=== PATIENT | female | born 1940 | race African-American/Black ===

== ENCOUNTER 2017-01-15 14:32 | Outpatient (CLI) | payer MEDICARE, MEDICAID ==
--- NOTE | 2017-01-15 15:36 | SJPRAD ---
3 VIEWS CERVICAL SPINE: Date: 01/15/17 INDICATION: Cervicalgia. FINDINGS: There is mild disc degenerative disease seen at C3-4 through C6-7. Spinal alignment is preserved. La teral masses are symmetric. Lung apices are clear. IMPRESSION: Mild spondylosis of cervical spine. POS: [facility]
== END 2017-01-15 14:33 | disposition home or self-care (01) ==
LOC: MWLC RAD 14:32
PROVIDERS: ATTEND Family Medicine
DX: M54.2 Cervicalgia (principal); M47.892 Other spondylosis, cervical region

== ENCOUNTER 2017-07-03 14:20 | Outpatient (CLI) | payer MEDICARE, MEDICAID | END 2017-07-03 14:21 | disposition home or self-care (01) | LOC: BICMAMMO 14:20 | PROVIDERS: ATTEND Family Medicine | DX: Z12.31 Encounter for screening mammogram for malignant neoplasm of breast (principal); Z80.3 Family history of malignant neoplasm of breast | CPT/HCPCS: 77063; 77067 ==

== ENCOUNTER 2017-10-16 09:12 | Emergency (ER) | payer MEDICARE, MEDICAID ==
[2017-10-16 09:50] LABS: #Eosinphils 0.1 thou/uL (0.0-0.7); #Lymphocytes 2.1 thou/uL (1.20-3.40); #Monocytes 0.4 thou/uL (0.11-0.59); #Neutrophils 4.8 thou/uL (1.40-6.50); %Basophils 0.6 % (0.0-1.0); %Eosinophils 0.8 % (0.0-10.0); %Lymphocytes 28.6 % (21.0-51.0); %Neutrophils 64.9 % (42.0-75.0); Hemoglobin 12.9 g/dL (12.0-16.0); Mean Corpuscular HGB CONC 34.5 g/dL (32.0-36.0); Mean Corpuscular Hemoglobin 29.7 pg (27.0-31.0); Mean Platelet Volume 7.2 fL (7.4-10.4); Platelet Count 300 thou/uL (130-400); RBC Distribution Width 12.4 % (11.5-14.5); Red Blood Cell (RBC) Count 4.36 mill/uL (4.20-5.40); White Blood Cell (WBC) Count 7.5 thou/uL (4.8-10.8)
[2017-10-16] MEDS ORDERED: Mag-Al 1200 mg/1200 mg/30 ML UDCUP ONE (10:07)
[2017-10-16] MEDS ORDERED: Lidocaine Viscous Sol 2% 15 ml UD Cup ONE (10:07)
--- NOTE | 2017-10-16 10:25 | ULT ---
ULTRASOUND GALLBLADDER RIGHT UPPER QUADRANT: Date: 10/16/17 HISTORY: Abdominal pain. COMPARISON: CT examination June 2016. FINDINGS: Visualized portions of the pancreas unremarkable. Portal vein is patent with antegrade flow. Common b ile duct measures 5.0 mm, normal. Gallbladder wall thickness is normal. No pericholecystic fluid. Intrapolar right renal cyst is present. Right kidney measures 10.1 x 3.8 x 5.5 cm. IMPRESSION: 1. No acute abnormality. 2. Right renal cyst. POS: [facility]
[2017-10-16 10:33] LABS: ALT (SGPT) 10 U/L (8-55); AST (SGOT) 21 U/L (5-34); Albumin 4.3 g/dL (3.4-4.8); Alkaline Phosphatase 73 U/L (40-150); Anion Gap 14 mmol/L (10-20); BUN (Urea Nitrogen) 19 mg/dL (9.8-20.1); Bilirubin, Total 0.5 mg/dL (0.2-1.2); Calc. Creatinine Clearance 0 mL/min (70-130); Calcium 9.6 mg/dL (7.8-10.44); Carbon Dioxide 26 mmol/L (23-31); Chloride 101 mmol/L (98-107); Estimated GFR-MDRD 62; Globulin 3.5 g/dL (2.4-3.5); Glucose 174 mg/dL (83-110); Lipase 43 U/L (8-78); Potassium 3.8 mmol/L (3.5-5.1); Protein, Total 7.8 g/dL (6.0-8.3); Sodium 137 mmol/L (136-145)
[2017-10-16 10:39] LABS: CKMB 1.1 ng/mL (0-6.6); Troponin I Less than 0.010 ng/mL (< 0.028)
[2017-10-16 10:49] LABS: Bilirubin Negative (Negative); Blood, Urine Negative (Negative); Clarity CLOUDY (Clear); Glucose, Urine (Dipstick) Negative (Negative); Leukocyte Moderate (Negative); Nitrite Negative (Negative); Protein, Urine (Dipstick) 100 mg/dL (Neg-Trace); Specific Gravity, Urine 1.021 (1.002-1.036)
[2017-10-16 10:53] LABS: Bacteria/HPF Rare-Few HPF (None Seen); Hyaline Casts/LPF 7-10 HYALINE CAST LPF (0-3 Hyaline); Pathc Cast-AUWi Flag 2.03 (0-2.49); RBC/HPF 0-3 HPF (0-3); WBC/HPF 21-50 HPF (0-3)
--- NOTE | 2017-10-19 11:48 | EKG ---
Test Reason : ABD PAIN Blood Pressure : / mmHG Vent. Rate : 061 BPM Atrial Rate : 061 BPM P-R Int : 134 ms QRS Dur : 082 ms QT Int : 398 ms P-R-T Axes : 039 022 011 degrees QTc Int : 400 ms Normal sinus rhythm with sinus arrhythmia Normal ECG Confirmed by MAGDA SHERIFF DO ([id number]), editorial intern DAVIDSON NEWTON ([id number]) on 10/19/2017 11:48:27 AM Referred By: Confirmed By:MAGDA SHERIFF DO
== END 2017-10-16 13:06 | disposition home or self-care (01) ==
LOC: ERS 09:12
DX: N39.0 Urinary tract infection, site not specified (principal); E11.9 Type 2 diabetes mellitus without complications; E78.5 Hyperlipidemia, unspecified; I10 Essential (primary) hypertension; E66.9 Obesity, unspecified; Z86.73 Personal history of transient ischemic attack (TIA), and cerebral infarction without residual deficits; Z79.899 Other long term (current) drug therapy
CPT/HCPCS: 36415; 76705; 80053; 81003; 81015; 82553; 83690; 84484; 85025; 93005

== ENCOUNTER 2018-06-02 08:11 | Outpatient (CLI) | payer MEDICARE, MEDICAID ==
--- NOTE | 2018-06-02 10:21 | ULT ---
ABDOMINAL ULTRASOUND: HISTORY: Abdominal pain. TECHNIQUE: Real-time imaging of the upper abdomen was performed. FINDINGS: This shows a normal appearing gallbladder. The common duct is in the 4 mm range. The technologist r eports a negative ultrasound Stovall sign. The liver is 15 cm in length and shows no focal lesion. T he spleen measures 7 cm. The pancreas is fairly well imaged and unremarkable. The abdominal aorta and IVC regions also appear unremarkable. The right and left kidneys are normal in size and not obstructed. Incidental note is made of 2.4 x 2 .8 cm right renal cyst. IMPRESSION: Right renal cyst; otherwise unremarkable abdomen ultrasound. POS: [facility]
== END 2018-06-02 08:12 | disposition home or self-care (01) ==
LOC: ULT 08:11
PROVIDERS: ATTEND Internal Medicine Gastroenterology
DX: R10.9 Unspecified abdominal pain (principal); N28.1 Cyst of kidney, acquired
CPT/HCPCS: 76700

== ENCOUNTER 2018-06-11 11:44 | Day surgery (SDC) | payer MEDICARE, MEDICAID ==
--- NOTE | 2018-06-11 07:30 | HP ---
HISTORY OF PRESENT ILLNESS: This is a 78-year-old female, comes for EGD because of abdominal pain, dyspepsia, heartburn, etc. Ms. Mcghee is a very pleasant 78-year -old female with chronic GI symptoms. She complained of indigestion, heartburn, and nausea. She antacids several times a day before relief. The symptoms were worse in the nighttime. She feels that food sticks in her esophagus. She feels she has no dysphagia. When she eats, the food goes down and after a while the food does not go any further. She has had nausea off and on. She has no vomiting. No history of constipation. ALLERGIES: PENICILLIN. SOCIAL HISTORY: The patient does not smoke or drink alcohol. MEDICAL ILLNESSES: 1. Hypertension. 2. Diabetes. 3. Hyperlipidemia. 4. Chronic pain, both lower extremities. 5. Right eye blindness. 6. Osteoarthritis. 7. Anxiety. 8. Back pain. PHYSICAL EXAMINATION: GENERAL: She appears comfortable. VITAL SIGNS: Pulse is 70, blood pressure 110/76. HEENT: Conjunctivae clear. CARDIOVASCULAR SYSTEM: First and second heart sounds heard. LUNGS: Clear to auscultation. ABDOMEN: Soft. Abdomen is mildly tender over the epigastric area. There is no rebound or guarding. ADMITTING DIAGNOSIS: A 78-year-old female with recurrent dyspepsia, questionable dysphagia, and indigestion. PLAN: EGD. [facility] ID: [id number] [facility]
[~2018-06-11 11:44] MED LIST: PROPOFOL 200 MG/20 ML VIAL ONE
[2018-06-11] MEDS ORDERED: Ondansetron PF 4 MG/2 ML Vial ONE (14:04)
--- NOTE | 2018-06-11 18:00 | OP ---
DATE OF PROCEDURE: 06/11/2018 PREOPERATIVE DIAGNOSES: Chronic dyspepsia and abdominal discomfort. POSTOPERATIVE DIAGNOSES: 1. Hiatal hernia. 2. Normal esophageal mucosa. 3. sessile polyp, gastric body, biopsied. 4. Another two small polyps over the gastric body, appeared to be hyperplastic, not biopsied. 5. Normal duodenum. OPERATIVE PROCEDURE: Esophagogastroduodenoscopy with biopsy. PROCEDURE IN DETAIL: The patient was placed on the left lateral position and was given sedation by Anesthesia Department. A Pentax video gastroscope under direct vision passed down the oropharynx, past the GE junction into the stomach and subsequently into the descending duodenum. The esophageal mucosa appeared normal. The patient had no esophageal stricture. She does have small hiatus hernia. Retroflexion failed to show any pathology in fundus or cardia. The gastric body showed a sessile polyp. This was biopsied. The incisura angularis, gastric antrum, no pathology seen. The duodenal bulb, descending duodenum, no pathology seen. The stomach decompressed and the scope removed. DISCHARGE PLANNING: This is a 78-year-old female, came to the EGD because of chronic dyspepsia, abdominal discomfort, and questionable dysphagia. The EGD showed no esophageal stricture. Does show hiatus hernia and gastric polyps. DISCHARGE RECOMMENDATIONS: 1. The patient was advised to call me if she develops abdominal pain, hematochezia, hematemesis, or melena. 2. In the absence of any of the above symptoms, she will come back to me in 2 weeks. Job ID: [id number] [facility]
== END 2018-06-11 15:35 | disposition home or self-care (01) ==
LOC: SDC 11:44 → EEVIPCON 11:44 → SDC 15:35
PROVIDERS: ATTEND Internal Medicine Gastroenterology
PROC: 0DB68ZX Excision of Stomach, Via Natural or Artificial Opening Endoscopic, Diagnostic (ICD-10-PCS; principal; 2018-06-11)
DX: K29.50 Unspecified chronic gastritis without bleeding (principal); B96.81 Helicobacter pylori [H. pylori] as the cause of diseases classified elsewhere; K31.7 Polyp of stomach and duodenum; K44.9 Diaphragmatic hernia without obstruction or gangrene; I10 Essential (primary) hypertension; E11.9 Type 2 diabetes mellitus without complications; E78.5 Hyperlipidemia, unspecified; M19.90 Unspecified osteoarthritis, unspecified site; F41.9 Anxiety disorder, unspecified; G89.29 Other chronic pain; M79.605 Pain in left leg; M79.604 Pain in right leg; Z88.0 Allergy status to penicillin; Z88.1 Allergy status to other antibiotic agents; Z79.84 Long term (current) use of oral hypoglycemic drugs; Z79.899 Other long term (current) drug therapy
CPT/HCPCS: 88305; 88312; J2405; J2704

== ENCOUNTER 2018-07-04 09:33 | Outpatient (CLI) | payer MEDICARE, MEDICAID ==
--- NOTE | 2018-07-04 11:07 | MMO ---
Bilateral MAMMO Bilat Screen DDI+TRAMAINE. CLINICAL HISTORY: Patient is 78 years old and is seen for screening. The patient has the following family history of breast cancer: niece. The patient has no personal history of cancer. VIEWS: The views performed were: bilateral craniocaudal with tomosynthesis and bilateral mediolateral oblique with tomosynthesis. FILMS COMPARED: The present examination has been compared to prior imaging studies performed at [facility] on 05/09/2009, 06/06/2010, 06/08/2011, 05/27/2013, 06/11/2014, 06/14/2015, 06/15/2016 and 07/03/2017. MAMMOGRAM FINDINGS: There are scattered fibroglandular densities. There are no suspicious masses, suspicious calcifications, or new areas of architectural distortion. IMPRESSION: THERE IS NO MAMMOGRAPHIC EVIDENCE OF MALIGNANCY. A ROUTINE FOLLOW-UP MAMMOGRAM IN 1 YEAR IS RECOMMENDED. THE RESULTS OF THIS EXAM WERE SENT TO THE PATIENT. ACR BI-RADS Category 1 - Negative MAMMOGRAPHY NOTE: 1. A negative mammogram report should not delay a biopsy if a dominant of clinically suspicious mass is present. 2. Approximately 10% to 15% of breast cancers are not detected by mammography. 3. Adenosis and dense breasts may obscure an underlying neoplasm.
== END 2018-07-04 09:34 | disposition home or self-care (01) ==
LOC: BICMAMMO 09:33
PROVIDERS: ATTEND Family Medicine
DX: Z12.31 Encounter for screening mammogram for malignant neoplasm of breast (principal); Z80.3 Family history of malignant neoplasm of breast
CPT/HCPCS: 77063; 77067

== ENCOUNTER 2019-01-12 15:20 | Emergency (ER) | payer MEDICARE, MEDICAID ==
[2019-01-12 17:30] LABS: Bacteria/HPF None Seen HPF (None Seen); Bilirubin Negative (Negative); Blood, Urine Negative (Negative); Clarity Clear (Clear); Glucose, Urine (Dipstick) Normal (Negative); Leukocyte Negative Leu/uL (Negative); Nitrite Negative (Negative); Protein, Urine (Dipstick) 50 mg/dL (Neg-Trace); RBC/HPF 0-3 HPF (0-3); Squamous Epithelial 0-3 HPF (0-3); Urobilinogen Normal mg/dL (Less than 2); WBC/HPF 0-3 HPF (0-3)
[2019-01-12] MEDS ORDERED: Ketorolac Tromethamine 60 MG/2 ML VIAL ONE (19:04)
[2019-01-12] MEDS ORDERED: Dexamethasone 4 mg/ml Vial ONE (19:04)
[2019-01-12] MEDS ORDERED: Dexamethasone 4 MG TAB PO SCH (19:15)
--- NOTE | 2019-01-12 19:53 | CT ---
CT LUMBAR SPINE: INDICATIONS: Low back pain. FINDINGS: The lumbar vertebrae maintain normal height and alignment. The disk spaces are normally maintained. T here are degenerative disk changes seen in the lower thoracic spine. Degenerative spurring is seen fr om the lumbar vertebrae. No evidence of spondylolisthesis. At L1-L2 no significant disk bulge. No central canal or foraminal stenosis. At L2-L3 no significant disk bulge. No central canal or foraminal stenosis. At L3-L4 no significant disk bulge. Mild facet hypertrophy. No central canal or foraminal stenosis. At L4-L5 mild diffuse disk bulge flattens the thecal sac. Mild facet and ligamentous hypertrophy. Rayna y mild central canal stenosis. Foramina are patent. At L5-S1 broad-based disk bulge flattens the thecal sac. Facet and ligamentous hypertrophy. Mild cent ral canal stenosis. Mild foraminal encroachment bilaterally due to disk bulge and hypertrophic change . The diffuse disk bulge may displace both the traversing S1 nerve roots. IMPRESSION: Broad-based disk bulge with mild to moderate central canal stenosis at L5-S1 as described. POS: [facility]
--- NOTE | 2019-01-12 20:03 | CT ---
CT THORACIC SPINE: HISTORY: Mid and low back pain with pain radiating down both legs for three days. Pain with urination. Bodyach es. COMPARISON: None. FINDINGS: The vertebral body heights are within normal limits. No fracture or subluxation is seen involving the thoracic spine. There is no high grade central canal stenosis or neural foraminal narrowing at any l evel of the thoracic spine. Limited visualized lower cervical spine demonstrates degenerative changes with prominent left-sided uncinate process hypertrophy involving the lower cervical spine and encroa chment on the left sided neural foramen at these levels. There is dependent atelectasis within the visualized lung zones. The paravertebral soft tissues have a normal appearance. There is partial visualization of a small pericardial effusion and the heart does appear mildly enlar ged as well. The pericardial effusion was also visualized on CT abdomen on 07/10/2016. Vascular calcifications are seen in the aortic arch as well as involving the visualized proximal abdo johnny aorta. A subcentimeter, aev-[id number]-[id number]-characterize, hypodense lesion is incompletely imaged in the mid portio n of the left kidney. IMPRESSION: 1. Mild multilevel degenerative changes throughout the thoracic spine, but no fracture or subluxation is seen. 2. Small pericardial effusion. POS: [facility]
[2019-01-12] MEDS ORDERED: Dexamethasone 10 MG/ML VIAL ONE (20:44)
== END 2019-01-12 20:59 | disposition home or self-care (01) ==
LOC: ERS 15:20
DX: M47.9 Spondylosis, unspecified (principal); I49.9 Cardiac arrhythmia, unspecified; E11.9 Type 2 diabetes mellitus without complications; E78.5 Hyperlipidemia, unspecified; I10 Essential (primary) hypertension; E66.9 Obesity, unspecified; Z79.899 Other long term (current) drug therapy; Z86.73 Personal history of transient ischemic attack (TIA), and cerebral infarction without residual deficits; Z79.84 Long term (current) use of oral hypoglycemic drugs
CPT/HCPCS: 72128; 72131; 81003; 81015; 96372; J1100; J1885

== ENCOUNTER 2019-07-31 10:10 | Outpatient (CLI) | payer MEDICARE, OTHER ==
--- NOTE | 2019-07-31 10:48 | MMO ---
Bilateral MAMMO Bilat Screen DDI+TRAMAINE. CLINICAL HISTORY: Patient is 79 years old and is seen for screening. The patient has the following family history of breast cancer: niece. The patient has no personal history of cancer. VIEWS: The views performed were: bilateral craniocaudal with tomosynthesis and bilateral mediolateral oblique with tomosynthesis. FILMS COMPARED: The present examination has been compared to prior imaging studies performed at [facility] on 06/14/2015, 06/15/2016, 07/03/2017 and 07/04/2018. This study has been interpreted with the assistance of computer-aided detection. MAMMOGRAM FINDINGS: There are scattered fibroglandular densities. There are no suspicious masses, suspicious calcifications, or new areas of architectural distortion. IMPRESSION: THERE IS NO MAMMOGRAPHIC EVIDENCE OF MALIGNANCY. A ROUTINE FOLLOW-UP MAMMOGRAM IN 1 YEAR IS RECOMMENDED. THE RESULTS OF THIS EXAM WERE SENT TO THE PATIENT. ACR BI-RADS Category 1 - Negative MAMMOGRAPHY NOTE: 1. A negative mammogram report should not delay a biopsy if a dominant of clinically suspicious mass is present. 2. Approximately 10% to 15% of breast cancers are not detected by mammography. 3. Adenosis and dense breasts may obscure an underlying neoplasm. Reported by: IRMA WESTBROOK MD Electonically Signed: [id number]
== END 2019-07-31 10:11 | disposition home or self-care (01) ==
LOC: BICMAMMO 10:10
PROVIDERS: ATTEND Family Medicine
DX: Z12.31 Encounter for screening mammogram for malignant neoplasm of breast (principal); Z80.3 Family history of malignant neoplasm of breast
CPT/HCPCS: 77063; 77067

== ENCOUNTER 2020-02-09 13:23 | Inpatient (IN) | payer MEDICARE, MEDICAID ==
[~2020-02-09 13:23] MED LIST changes: +Iopamidol-370 76% 500 ML 1 ML ONE; -PROPOFOL 200 MG/20 ML VIAL ONE
--- NOTE | 2020-02-09 13:43 | CT ---
CT Brain WO Con History: Level 1 stroke. Left-sided weakness. Comparison: MRI brain 2007 Findings: Moderate microvascular ischemic changes in the parisi radiata and right basal ganglia. Old left basal ganglia infarcts. No acute hemorrhage. No midline shift or mass effect. No large volume territorial infarction. Calvarium is intact. Paranasal sinuses and mastoids are clear. Impression: 1. No acute hemorrhage. 2. Moderate chronic microvascular ischemic changes. Code: DARLINE Funez at 1:38 PM
[2020-02-09 14:01] LABS: #Eosinphils 0.1 thou/uL (0.0-0.7); #Lymphocytes 2.4 thou/uL (1.20-3.40); #Monocytes 0.5 thou/uL (0.11-0.59); #Neutrophils 5.3 thou/uL (1.40-6.50); %Basophils 0.5 % (0.0-1.0); %Eosinophils 1.2 % (0.0-10.0); %Lymphocytes 28.6 % (21.0-51.0); %Monocytes 6.5 % (0.0-10.0); %Neutrophils 63.2 % (42.0-75.0); Mean Corpuscular HGB CONC 34.3 g/dL (32.0-36.0); Mean Corpuscular Hemoglobin 30.1 pg (27.0-31.0); Mean Corpuscular Volume 87.7 fL (78.0-98.0); Mean Platelet Volume 8.2 fL (7.4-10.4); Platelet Count 274 thou/uL (130-400); RBC Distribution Width 12.1 % (11.5-14.5); Red Blood Cell (RBC) Count 4.33 mill/uL (4.20-5.40); White Blood Cell (WBC) Count 8.3 thou/uL (4.8-10.8)
[2020-02-09 14:06] LABS: PTT 24.3 sec (22.9-36.1); Prothrombin Time 12.1 sec (12.0-14.7)
[2020-02-09 14:07] LABS: INR-International Normal Ratio 0.9
[2020-02-09 14:21] LABS: ALT (SGPT) 9 U/L (8-55); AST (SGOT) 16 U/L (5-34); Alkaline Phosphatase 62 U/L (40-110); Anion Gap 10 mmol/L (10-20); BUN (Urea Nitrogen) 12 mg/dL (9.8-20.1); Bilirubin, Total 0.4 mg/dL (0.2-1.2); CK (CPK) 226 U/L (29-168); Calc. Creatinine Clearance 0 mL/min (70-130); Calcium 9.3 mg/dL (7.8-10.44); Carbon Dioxide 29 mmol/L (23-31); Chloride 104 mmol/L (98-107); Estimated GFR-MDRD 76; Globulin 3.2 g/dL (2.4-3.5); Glucose 88 mg/dL (83-110); Potassium 4.1 mmol/L (3.5-5.1); Protein, Total 7.2 g/dL (6.0-8.3); Sodium 139 mmol/L (136-145)
[2020-02-09] MEDS ORDERED: niCARdipine 20MG In NaCl 0 MG/0 ML BAG ONE (14:24)
--- NOTE | 2020-02-09 14:52 | CT ---
CT ANGIOGRAM OF HEAD CT ANGIOGRAM OF NECK: Date: 02/09/2020 HISTORY: Left-sided weakness, Level I stroke. TECHNIQUE: CT angiogram of head and neck are performed in the axial plane. 3-D reformatted images are submitted for interpretation. FINDINGS: POSTCONTRAST HEAD CT: Chronic small vessel ischemic changes of the white matter. Remote lacunar infarct involving the right lentiform nucleus. Remote lacunar infarct in the right parisi radiata. Cortical rodriguez-white matter di fferentiation is preserved. There are no enhancing masses in the brain parenchyma. Calvarium is intact. Adequate aeration of the right mastoid air cells. There is left maxillary sinus and left mastoid air cell disease. There is asymmetric increased soft tissue density in the left nasopharynx at the fossa of Rosenmuller. Underlying pathology cannot be excluded. Direct visualization is recommended. No obvious masses in the anterior oral cavity. Limited evaluation due to dental amalgam artifact. Mid line fatty raphae of the tongue appears to be grossly preserved. Epiglottis has a normal caliber. Pre epiglottic fat is preserved. Supraglottic, glottic, and subglottic larynx have a normal appearance. S ymmetric attenuation of the parotid and submandibular glands. Thyroid gland does not demonstrate any abnormality. No evidence of lymphadenopathy by size criteria. Varying degrees of central canal stenosis and foraminal narrowing on the basis of degenerative change . Technique limits evaluation. Upper mediastinum and lung apices do not demonstrate any acute abnormality. CT ANGIOGRAM: There is appropriate enhancement and luminal diameter of aortic arch. Note, there is a common origin of the innominate artery, and right and left common carotid artery. Right Carotid: Appropriate enhancement and luminal diameter. Mild atherosclerosis in carotid bifurca tion and proximal internal carotid artery. No significant stenosis based upon NASCET criteria. Left Carotid: Appropriate enhancement and luminal diameter of the carotid artery. There is atheroscl erosis with short segment moderate 64% stenosis involving the left carotid bifurcation. The mid and d istal left internal carotid artery have appropriate enhancement and luminal diameter. Cervical vertebral arteries are patent throughout their course in the neck. Dominant right vertebral artery. Subclavian arteries are patent. CT ANGIOGRAM HEAD: Atherosclerosis involving both cavernous and paraclinoid segments. Anterior circulation: Appropriate enhancement and luminal diameter of the A1 segments, A2 segments, M1 segments, and proximal MCA branches. Intracranial vertebral arteries are patent. Left and right PICA artery origins are difficult to asses s. Both vertebral arteries supply a normal caliber basilar artery. Posterior circulation: Right INVERTED BLOCK OPERATOR has a origin. Left P1 segment is patent. No evidence of signi ficant stenosis in the posterior circulation. IMPRESSION: 1. Moderate stenosis involving the left carotid bifurcation. 2. No significant stenosis to level of [place] of [place]. 3. Asymmetric opacification of left mastoid air cells with asymmetric fullness of the left nasophary nx at the level of fossa of Rosenmuller. Nasopharyngeal carcinoma cannot be excluded. Direct visualiz ation is recommended. Results of study discussed with Dr. Funez on 02/09/2020 at 1420 hours. CODE CR.
[2020-02-09] MEDS ORDERED: Aspirin Chewable 81 MG TAB ONE (14:54)
[2020-02-09] MEDS ORDERED: hydrALAZINE 20 MG/ML VIAL SLOW IVP PRN (15:59)
--- NOTE | 2020-02-09 16:10 | PDOC.HHP ---
Hospitalist HPI - History of Present Illness Left hand weakness History of Present Illness: Patient is a 79-year-old female with a history of hypertension and diabetes who states she was in her usual state of health until she developed some weakness in her left hand. She had decreased ability to move her hand and fingers. She subsequently presented here to the emergency department. She denies any other associated symptoms. Denies any weakness in her leg and is able to kick her leg up straight in the air to demonstrate that she has no problem there. She has had no headache or lightheadedness. She had a head CT demonstrating no acute bleed. The ER physician discussed the situation with the patient and ultimately she opted not to have TPA and just go with aspirin. Currently she has no specif ic complaints other than the weakness in her left hand. Hospitalist ROS - Review of Systems Respiratory: denies: cough, shortness of breath Cardiovascular: denies: chest pain Gastrointestinal: reports: constipation (Occasional). denies: nausea, vomiting, abdominal pain, diarrhea Neurological: reports: weakness (Left hand). denies: numbness, incoordination, change in speech, confusion, seizures All other systems reviewed; all pertinent +/- noted in HPI/Subj - Medication Medications: She tells me that she takes Metformin that has recently been added in place of something she was taken prior. She also says she takes losartan replacing which she used to take which was Hyzaar. Hospitalist History - Past Medical History Source: patient Cardiac: reports: HTN Endocrine: reports: Diabetes - Past Surgical History Past Surgical History: reports: no pertinent history - Family History Family History: reports: no pertinent history - Social History Smoking Status: Never smoker Alcohol: reports: None Drugs: reports: none Other Social History: Patient is not . She has 3 children who have all . She has a sister and a niece who help her when needed. - Exam General Appearance: NAD, awake alert Eye - other findings: Right eyes notable for opacity of the iris Heart: RRR, no murmur, no gallops, no rubs Respiratory: CTAB, no wheezes, no rales, no ronchi, normal chest expansion, no tachypnea Gastrointestinal: soft, non-tender, non-distended, normal bowel sounds, no palpable masses, no hepatomegaly, no splenomegaly, no bruit Extremities: no cyanosis, no clubbing, no edema Skin: normal turgor Neurological - other findings: Decreased smooth plater in the left hand. Mild weakness LE Musculoskeletal: normal tone Psychiatric: normal behavior, A&O x 3 Psychiatric - other findings: Slightly strange affect. Hospitalist Results - Labs Result Diagrams: 02/09/20 13:40 02/09/20 13:40 Lab results: WBC 8.3 thou/uL (4.8-10.8) 02/09/20 13:40 Hgb 13.0 g/dL (12.0-16.0) 02/09/20 13:40 Hct 38.0 % (36.0-47.0) 02/09/20 13:40 MCV 87.7 fL (78.0-98.0) 02/09/20 13:40 Plt Count 274 thou/uL (130-400) 02/09/20 13:40 Neutrophils % 63.2 % (42.0-75.0) 02/09/20 13:40 Sodium 139 mmol/L (136-145) 02/09/20 13:40 Potassium 4.1 mmol/L (3.5-5.1) 02/09/20 13:40 Chloride 104 mmol/L (98-107) 02/09/20 13:40 Carbon Dioxide 29 mmol/L (23-31) 02/09/20 13:40 BUN 12 mg/dL (9.8-20.1) 02/09/20 13:40 Creatinine 0.87 mg/dL (0.6-1.1) 02/09/20 13:40 Glucose 88 mg/dL (83-110) 02/09/20 13:40 Calcium 9.3 mg/dL (7.8-10.44) 02/09/20 13:40 Total Bilirubin 0.4 mg/dL (0.2-1.2) 02/09/20 13:40 AST 16 U/L (5-34) 02/09/20 13:40 ALT 9 U/L (8-55) 02/09/20 13:40 Alkaline Phosphatase 62 U/L (40-110) 02/09/20 13:40 Creatine Kinase 226 U/L (29-168) H 02/09/20 13:40 Troponin I Less than 0.010 ng/mL (< 0.028) 02/09/20 13:40 Serum Total Protein 7.2 g/dL (6.0-8.3) 02/09/20 13:40 Albumin 4.0 g/dL (3.4-4.8) 02/09/20 13:40 - EKG Interpretation EKG: Heart rate 70, normal sinus rhythm, nonspecific T wave changes, normal intervals, normal axis - Radiology Interpretation CT scan - head Status: image reviewed by me, report reviewed by me (Some chronic mild microvascular changes. No acute findings.) Other Status: report reviewed by me Additional Comment: CTA of the head and neck: Moderate stenosis involving left carotid bifurcation, no significant stenosis at the level of the [place], asymmetric opacification of the left mastoid air cells with asymmetric fullness the left nasopharynx at the level of the fossa of Rosenmuller. Nasopharyngeal carcinoma could not be ruled out. Hospitalist H&P A/P - Problem (1) CVA (cerebral vascular accident) Code(s): I63.9 - CEREBRAL INFARCTION, UNSPECIFIED Status: Acute (2) Diabetes mellitus type 2 in obese Code(s): E11.9 - TYPE 2 DIABETES MELLITUS WITHOUT COMPLICATIONS; E66.9 - OBESITY, UNSPECIFIED Status: Acute (3) Hypertension Code(s): I10 - ESSENTIAL (PRIMARY) HYPERTENSION Status: Acute (4) Abnormal computed tomography angiography of head Code(s): R93.0 - ABNORMAL FINDINGS ON DX IMAGING OF SKULL AND HEAD, [facility] Sta tus: Acute (5) Carotid stenosis, left Code(s): I65.22 - OCCLUSION AND STENOSIS OF LEFT CAROTID ARTERY Status: Acute - Plan Plan: CVA: Patient reviewed the situation and discussed TPA with the ER physician and opted for aspirin therapy. She will be admitted to the hospital. Will consult neurology, stroke team. Keep her on a heart healthy diet. Permissive hypertension. Aspirin and statin. Echocardiogram, MRI. Hypertension: Likely some reactive hypertension due to the CVA on her chronic hypertension. Allow for permissive hypertension. Currently her blood pressure exceeds those parameters and as needed medications have been ordered. We will resume her home medications once entered. Diabetes mellitus: We will keep her on a diabetic diet. Resume home medicines once entered. Sliding scale insulin with before every meal and at bedtime glucose monitoring. Possible nasopharyngeal lesion: We will obtain the MRI of the head see if we get any more detailed information on that. Recommendation from radiology has been for direct visualization by ENT. Pending the MRI results may need to consult ENT. Left carotid stenosis: Not consistent with the patient's current deficits. Continue aspirin and statin
[2020-02-09] MEDS ORDERED: Labetalol HCl 100 MG/20 ML VIAL ONE (16:35)
[2020-02-09] MEDS: Labetalol HCl 100 MG/20 ML VIAL SLOW IVP PRN ×3 (16:45→23:44)
--- NOTE | 2020-02-09 17:08 | CON ---
NEUROLOGY CONSULTATION DATE OF CONSULTATION: 02/09/2020 REASON FOR CONSULTATION: Left facial numbness, left upper extremity numbness, paresthesias and weakness, . HISTORY OF PRESENT ILLNESS: Ms. Roshan Mcghee is a 79-year-old female with history significant for hypertension and diabetes, who was in her usual state of health when she has developed weakness of her left hand. She was unable to move her hand and squeeze fingers, then she noticed that she had weakness in the left upper extremity, which feels heavy and there is some tingling and paresthesias. She also felt numbness on the left side of her face and around the left side of the lip. She denies problems with speech or swallowing, headache, dizziness, nausea, vomiting, chest pain, abdominal pain, recent illness or recent exposure to COVID. The patient denies any weakness on the right upper and lower extremity or in her left leg. In the emergency room, her blood pressure was very high 240/108. Head CT was done, which was negative for acute intracranial pathology. CTA of the head was unremarkable and CTA of the neck showed moderate stenosis involving the left carotid bifurcation and no significant stenosis at the [place]. Per patient, her facial numbness is almost resolved and also the weakness, tingling, numbness in the left upper extremity but she still has significant weakness of the left hand. She was givenaspirin and admitted for stroke evaluation. The ER physician discussed the patient's condition and explained that she may have a stroke, but she decided not to have tPA and just take aspirin. REVIEW OF SYSTEMS: All systems reviewed and were negative except the pertinent positives and negatives mentioned in the HPI. PAST MEDICAL HISTORY: Hypertension, diabetes. PAST SURGICAL HISTORY: No pertinent past surgical history. FAMILY HISTORY: No significant family history. SOCIAL HISTORY: The patient denies smoking, alcohol, or illegal drug use. She has a sister and niece who help her when needed. ALLERGIES: PCN, Clindamycin PHYSICAL EXAMINATION: VITAL SIGNS: Blood pressure 240/108, respiratory rate 18, and pulse 100. GENERAL APPEARANCE: NAD. EYES: Right eye blindness. Opacity of the iris. CVS: Regular rate and rhythm. CHEST: Clear. ABDOMEN: Soft. NECK: Supple. NEUROLOGIC: Mental status, the patient is alert and oriented to person, place, and time. Speech is clear. Cranial nerves, legally blind, right eye. Rest of the cranial nerves 3 through 12 were intact. Motor; muscle tone and bulk are normal. Strength 5/5 bilaterally except the left upper extremity 4+/5 in the left hand. Left hand court assistant 3/5. Sensory, slight decrease in touch in the left upper extremity. Cerebellar, finger-nose testing intact. Gait deferred due to the patient's safety reason. DATA REVIEWED: Lab results: WBC 8.3 thou/uL (4.8-10.8) 02/09/20 13:40 Hgb 13.0 g/dL (12.0-16.0) 02/09/20 13:40 Hct 38.0 % (36.0-47.0) 02/09/20 13:40 MCV 87.7 fL (78.0-98.0) 02/09/20 13:40 Plt Count 274 thou/uL (130-400) 02/09/20 13:40 Neutrophils % 63.2 % (42.0-75.0) 02/09/20 13:40 Sodium 139 mmol/L (136-145) 02/09/20 13:40 Potassium 4.1 mmol/L (3.5-5.1) 02/09/20 13:40 Chloride 104 mmol/L (98-107) 02/09/20 13:40 Carbon Dioxide 29 mmol/L (23-31) 02/09/20 13:40 BUN 12 mg/dL (9.8-20.1) 02/09/20 13:40 Creatinine 0.87 mg/dL (0.6-1.1) 02/09/20 13:40 Glucose 88 mg/dL (83-110) 02/09/20 13:40 Calcium 9.3 mg/dL (7.8-10.44) 02/09/20 13:40 Total Bilirubin 0.4 mg/dL (0.2-1.2) 02/09/20 13:40 AST 16 U/L (5-34) 02/09/20 13:40 ALT 9 U/L (8-55) 02/09/20 13:40 Alkaline Phosphatase 62 U/L (40-110) 02/09/20 13:40 Creatine Kinase 226 U/L (29-168) H 02/09/20 13:40 Troponin I Less than 0.010 ng/mL (< 0.028) 02/09/20 13:40 Serum Total Protein 7.2 g/dL (6.0-8.3) 02/09/20 13:40 Albumin 4.0 g/dL (3.4-4.8) 02/09/20 13:40 - EKG Interpretation EKG: Heart rate 70, normal sinus rhythm, nonspecific T wave changes, normal intervals, normal axis - Radiology Interpretation CT scan - head Status: image reviewed by me, report reviewed by me (Some chronic mild microvascular changes. No acute findings.) Other Status: report reviewed by me Additional Comment: CTA of the head and neck: Moderate stenosis involving left carotid bifurcation, no significant stenosis at the level of the [place], asymmetric opacification of the left mastoid air cells with asymmetric fullness the left nasopharynx at the level of the fossa of [place]. Nasopharyngeal carcinoma could not be ruled out. ASSESSMENT AND PLAN: (1) CVA (cerebral vascular accident) Code(s): I63.9 - CEREBRAL INFARCTION, UNSPECIFIED Status: Acute (2) Diabetes mellitus type 2 in obese Code(s): E11.9 - TYPE 2 DIABETES MELLITUS WITHOUT COMPLICATIONS; E66.9 - OBESITY, UNSPECIFIED Status: Acute (3) Hypertension Code(s): I10 - ESSENTIAL (PRIMARY) HYPERTENSION Status: Acute (4) Abnormal computed tomography angiography of head Code(s): R93.0 - ABNORMAL FINDINGS ON DX IMAGING OF SKULL AND HEAD, NEC Status: Acute (5) Carotid stenosis, left Code(s): I65.22 - OCCLUSION AND STENOSIS OF LEFT CAROTID ARTERY Status: Acute Ms. Roshan Mcghee is a 79-year-old female who presented with left upper extremity weakness and paresthesias, seizures more pronounced in the left hand. Currently, most of the symptoms resolved, but she still has weakness in the left hand. The patient opted for no tPA. She is found to be in hypertensive emergency. Monitor blood pressure and blood glucose. Neuro checks every 4 hours. MRI of the brain to assess acute intracranial process. 2D echo to evaluate for left ventricular ejection fraction. Telemetry to rule out arrhythmias. Continue aspirin and high-intensity statin for secondary stroke prevention and n.p.o. until cleared by speech or nursing bedside swallow evaluation. PT/OT/Speech. Continue home medications. Continue medical management per primary team. Plan discussed with the patient and nursing staff and also with the primary team. We will continue to follow. Thank you for the consult. Job ID: [id number] MTDDory
[2020-02-09 17:58] VITALS: BMI 24.4
[2020-02-09] MEDS: Ondansetron PF 4 MG/2 ML Vial IVP PRN (18:45)
[2020-02-09] MEDS: Atorvastatin Calcium 40 MG TAB PO SCH (21:22)
[2020-02-09] MEDS ORDERED: HumaLOG 300 UNITS/3 ML VIAL SC PRN ×2 (22:12)
[2020-02-09] MEDS ORDERED: Dextrose 50% Abboject 50 ML SYRINGE SLOW IVP PRN (22:12)
[2020-02-09] MEDS ORDERED: Dextrose 5% in Water 1,000 ML IV PRN (22:12)
[2020-02-10] MEDS: Labetalol HCl 100 MG/20 ML VIAL SLOW IVP PRN (02:37)
[2020-02-10 05:46] LABS: SARS-CoV-2 MS2 Positive; SARS-CoV-2 N Gene Negative; SARS-CoV-2 S Gene Negative; SARS-CoV-2 by NAA Not Detected (NotDetected); SARS-CoV-2 orf1ab Negative
[2020-02-10] MEDS: Acetaminophen 325 MG TAB PO PRN (07:27)
[2020-02-10] MEDS ORDERED: Aspirin 81 mg Enteric Coated Tablet PO SCH (09:00)
--- NOTE | 2020-02-10 10:18 | PDOC.HOSPP ---
- Subjective Encounter Date: 02/10/20 - Objective Vital Signs & Weight: Vital Signs (12 hours) Temp Pulse Resp BP BP Pulse Ox 02/10/20 07:54 98 F 83 16 193/86 H 100 02/10/20 04:00 98.1 F 78 18 134/78 98 02/10/20 02:37 78 221/97 H 02/10/20 00:00 228/99 H 02/09/20 23:44 110 H 228/99 H Weight Weight 151 lb 4.8 oz I&O: 02/09/20 02/10/20 02/11/20 06:59 06:59 06:59 Intake Total 150 Balance 150 Result Diagrams: 02/09/20 13:40 02/09/20 13:40 Additional Labs: Accuchecks 02/10/20 02/09/20 02/09/20 05:22 23:48 21:41 POC Glucose 190 H 202 H 217 H 02/09/20 13:30 POC Glucose 78 Hospitalist ROS - Medication Medications: Active Medications Generic Name Dose Route Start Last Admin Trade Name Freq PRN Reason Stop Dose Admin Acetaminophen 650 mg 02/10/20 05:55 02/10/20 07:27 Acetaminophen 325 Mg Tab PO 650 mg Q6H PRN Administration Headache/Fever or Pain Atorvastatin Calcium 40 mg 02/09/20 21:00 02/09/20 21:22 Atorvastatin Calcium 40 Mg Tab PO 40 mg HS MARCO ANTONIO Administration Labetalol HCl 20 mg 02/09/20 15:59 02/10/20 02:37 Labetalol Hcl 100 Mg/20 Ml Vial SLOW IVP 20 mg Q1H PRN Administration BP > 220/110 Ondansetron HCl 4 mg 02/09/20 18:22 02/09/20 18:45 Ondansetron Pf 4 Mg/2 Ml Vial IVP 4 mg Q6H PRN Administration Nausea/Vomiting - Exam General Appearance: NAD, awake alert Heart: RRR, no murmur, no gallops, no rubs, normal peripheral pulses Respiratory: CTAB, no wheezes, no rales, no ronchi, normal chest expansion, no tachypnea, normal percussion Gastrointestinal: soft, non-tender, non-distended, normal bowel sounds, no palpable masses, no hepatomegaly, no splenomegaly, no bruit Neurological - other findings: Persistent weakness primarily in the left hand. Psychiatric: normal affect, normal behavior, A&O x 3 Hosp A/P (1) CVA (cerebral vascular accident) Code(s): I63.9 - CEREBRAL INFARCTION, UNSPECIFIED Status: Acute (2) Diabetes mellitus type 2 in obese Code(s): E11.9 - TYPE 2 DIABETES MELLITUS WITHOUT COMPLICATIONS; E66.9 - OBESITY, UNSPECIFIED Status: Acute (3) Hypertension Code(s): I10 - ESSENTIAL (PRIMARY) HYPERTENSION Status: Acute (4) Abnormal computed tomography angiography of head Code(s): R93.0 - ABNORMAL FINDINGS ON DX IMAGING OF SKULL AND HEAD, NEC Status: Acute (5) Carotid stenosis, left Code(s): I65.22 - OCCLUSION AND STENOSIS OF LEFT CAROTID ARTERY Status: Acute - Plan CVA: Left hand weakness. Appears to be stable overnight. Continue with permissive blood pressure control. PT, OT, speech consults today. Neurology consult. MRI, echocardiogram. Continue aspirin and statin. Hypertension: Allowing some permissive hypertension with as needed medications available. Diabetes mellitus: Blood sugars running slightly high. Continuing home medications. May need to make some adjustments if they do not improve somewhat. Left carotid stenosis: Nonobstructive. No indication for intervention other than medical management. Abnormal CTA brain with possible nasopharyngeal mass: We will await results of the MRI. She may need an ENT evaluation at some point for direct visualization.
[2020-02-10 10:59] LABS: Cardiac Risk 3.4 (Less than 4.5)
[2020-02-10] MEDS ORDERED: metFORMIN 500 MG TAB PO SCH (11:00)
[2020-02-10] MEDS ORDERED: Aspirin 325 mg Enteric Coated Tablet PO SCH (11:15)
--- NOTE | 2020-02-10 12:11 | PDOC.NEUPN ---
- Subjective Encounter Date: 02/10/20 Subjective: Patient continues to have left hand weakness which is unchanged since admission. - Objective Vital Signs & Weight: Vital Signs (12 hours) Temp Pulse Pulse Pulse Resp BP BP 02/10/20 11:34 98.4 F 88 16 02/10/20 10:10 82 79 183/83 H 02/10/20 08:52 87 87 148/83 H 02/10/20 07:54 98 F 83 16 02/10/20 04:00 98.1 F 78 18 02/10/20 02:37 78 221/97 H BP BP Pulse Ox 02/10/20 11:34 205/90 H 97 02/10/20 10:10 182/81 H 02/10/20 08:52 192/86 H 02/10/20 07:54 193/86 H 100 02/10/20 04:00 134/78 98 02/10/20 02:37 Weight Weight 151 lb 4.8 oz I&O: 02/09/20 02/10/20 02/11/20 06:59 06:59 06:59 Intake Total 630 Balance 630 Result Diagrams: 02/09/20 13:40 02/09/20 13:40 Additional Labs: Accuchecks 02/10/20 02/10/20 02/09/20 10:47 05:22 23:48 POC Glucose 291 H 190 H 202 H 02/09/20 02/09/20 21:41 13:30 POC Glucose 217 H 78 Radiology Reviewed by me: Yes EKG Reviewed by me: Yes ROS - Review of Systems Constitutional: denies: fever, chills, sweats, weakness, malaise, other Eyes: denies: pain, vision change, conjunctivae inflammation, eyelid inflammation, redness, other ENT: denies: ear pain, ear discharge, nose pain, nose discharge, nose congestion, mouth pain, mouth swelling, throat pain, throat swelling, other Respiratory: denies: cough, dry, shortness of breath, hemoptysis, SOB with excertion, pleuritic pain, sputum, wheezing, other Cardiovascular: denies: no pertinent history, AFIB, CAD, CHF, HTN, NC, Syncope, Hyperlipidemia, Mitral valve stenosis, Aortic stenosis, Valve insufficiency, Pulmonary hypertension, Other Genitourinary: denies: dysuria, frequency, incontinence, hematuria, retention, other Musculoskeletal: denies: neck pain, shoulder pain, arm pain, back pain, hand pain, leg pain, foot pain, other Skin: denies: rash, lesions, jey, bruising, other Neurological: reports: weakness, numbness (Left hand). denies: incoordination, change in speech, confusion, seizures, other All Systems: All other systems reviewed; all pertinent +/- noted in HPI/Subj - Medication Medications: Active Medications Generic Name Dose Route Start Last Admin Trade Name Freq PRN Reason Stop Dose Admin Acetaminophen 650 mg 02/10/20 05:55 02/10/20 07:27 Acetaminophen 325 Mg Tab PO 650 mg Q6H PRN Administration Headache/Fever or Pain Aspirin 325 mg 02/10/20 11:15 02/10/20 11:33 Aspirin 325 Mg Enteric Coated Tablet PO 02/10/20 14:00 325 mg NOW MARCO ANTONIO Administration Atorvastatin Calcium 40 mg 02/09/20 21:00 02/09/20 21:22 Atorvastatin Calcium 40 Mg Tab PO 40 mg HS MARCO ANTONIO Administration Glipizide 2.5 mg 02/10/20 11:15 02/10/20 11:34 Glipizide Xl 2.5 Mg Tablet PO 02/10/20 14:00 2.5 mg NOW MARCO ANTONIO Administration Labetalol HCl 20 mg 02/09/20 15:59 02/10/20 02:37 Labetalol Hcl 100 Mg/20 Ml Vial SLOW IVP 20 mg Q1H PRN Administration BP > 220/110 Metformin HCl 500 mg 02/10/20 11:00 02/10/20 11:33 Metformin 500 Mg Tab PO 02/10/20 14:00 500 mg NOW MARCO ANTONIO Administration Ondansetron HCl 4 mg 02/09/20 18:22 02/09/20 18:45 Ondansetron Pf 4 Mg/2 Ml Vial IVP 4 mg Q6H PRN Administration Nausea/Vomiting - Exam General Appearance: awake alert Eye: PERRL ENT: normocephalic atraumatic Neck: supple Respiratory: CTAB Cardiovascular: RRR Gastrointestinal: soft Extremities: no cyanosis Skin: normal turgor Neurological: no new deficit Neurological - other findings: Left hand weakness Musculoskeletal: normal tone, no muscle wasting PSYCH: normal affect, normal behavior, A&O x 3 Results - Labs Result Diagrams: 02/09/20 13:40 02/09/20 13:40 Lab results: WBC 8.3 thou/uL (4.8-10.8) 02/09/20 13:40 Hgb 13.0 g/dL (12.0-16.0) 02/09/20 13:40 Hct 38.0 % (36.0-47.0) 02/09/20 13:40 MCV 87.7 fL (78.0-98.0) 02/09/20 13:40 Plt Count 274 thou/uL (130-400) 02/09/20 13:40 Neutrophils % 63.2 % (42.0-75.0) 02/09/20 13:40 Sodium 139 mmol/L (136-145) 02/09/20 13:40 Potassium 4.1 mmol/L (3.5-5.1) 02/09/20 13:40 Chloride 104 mmol/L (98-107) 02/09/20 13:40 Carbon Dioxide 29 mmol/L (23-31) 02/09/20 13:40 BUN 12 mg/dL (9.8-20.1) 02/09/20 13:40 Creatinine 0.87 mg/dL (0.6-1.1) 02/09/20 13:40 Glucose 88 mg/dL (83-110) 02/09/20 13:40 Calcium 9.3 mg/dL (7.8-10.44) 02/09/20 13:40 Total Bilirubin 0.4 mg/dL (0.2-1.2) 02/09/20 13:40 AST 16 U/L (5-34) 02/09/20 13:40 ALT 9 U/L (8-55) 02/09/20 13:40 Alkaline Phosphatase 62 U/L (40-110) 02/09/20 13:40 Creatine Kinase 226 U/L (29-168) H 02/09/20 13:40 Troponin I Less than 0.010 ng/mL (< 0.028) 02/09/20 13:40 Serum Total Protein 7.2 g/dL (6.0-8.3) 02/09/20 13:40 Albumin 4.0 g/dL (3.4-4.8) 02/09/20 13:40 - Radiology Interpretation CT scan - head Additional Comment: No acute intracranial pathology PN A/P (1) CVA (cerebral vascular accident) Code(s): I63.9 - CEREBRAL INFARCTION, UNSPECIFIED Status: Acute (2) Carotid stenosis, left Code(s): I65.22 - OCCLUSION AND STENOSIS OF LEFT CAROTID ARTERY Status: Acute (3) Diabetes mellitus type 2 in obese Code(s): E11.9 - TYPE 2 DIABETES MELLITUS WITHOUT COMPLICATIONS; E66.9 - OBESITY, UNSPECIFIED Status: Acute (4) Hypertension Code(s): I10 - ESSENTIAL (PRIMARY) HYPERTENSION Status: Acute - Plan Daily Plan: PT/OT, speech therapy, DVT proph w/SCDs 79-year-old female presented with strokelike symptoms. Exam significant for persistent left hand weakness. Head CT reviewed which was negative for acute intracranial pathology. CTA of the head and neck showed stenosis of the left internal carotid artery at the bifurcation. MRI Brain wo to rule out acute intracranial process Allow permissive HTN up to 48 hours Neurochecks every 4 hours. Continue ASA 81mg po daily for secondary stroke prevention. Continue high intensity for secondary stroke prevention. Please obtain Hemoglobin A1c and Fasting Lipid Panel, TSH Telemetry to evauate for arryhtmia. Transthoracic Echocardiogram to evaluate for PFO and LVEF Consult PT/OT/Speech Therapy for evaluation Continue home medications. Continue medical management per primary team. Plan discussed with the nursing staff and also during the stroke rounds.
[2020-02-10] MEDS ORDERED: CARBOXYMETHYLCELLULOSE SODIUM EA EYE SCH (15:00)
[2020-02-10] MEDS: Brinzolamide 1% Ophth SUSP 10 ml Bottle EA EYE SCH ×2 (16:17→21:04)
[2020-02-10] MEDS: Polyvinyl Alcohol 1.4%/Povidone 0.6% Opth Drops EA EYE SCH ×2 (16:19→21:05)
[2020-02-10] MEDS: metFORMIN 500 MG TAB PO SCH (18:01)
[2020-02-10] MEDS: Brimonidine Tartrate 0.2% Ophth Soln 5 ml Bottle L EYE SCH (21:04)
[2020-02-10] MEDS: Timolol 0.5% Ophth Soln 5 ml Bottle L EYE SCH (21:04)
[2020-02-10] MEDS: Enoxaparin Sodium 40 MG/0.4 ML SYRINGE SC SCH (21:05)
[2020-02-10] MEDS: Atorvastatin Calcium 40 MG TAB PO SCH (21:26)
[2020-02-11] MEDS: Ondansetron PF 4 MG/2 ML Vial IVP PRN ×2 (05:00→16:36)
[2020-02-11] MEDS: Polyvinyl Alcohol 1.4%/Povidone 0.6% Opth Drops EA EYE SCH ×3 (08:52→21:13)
[2020-02-11] MEDS: metFORMIN 500 MG TAB PO SCH ×2 (08:59→18:05)
[2020-02-11] MEDS ORDERED: Aspirin 325 mg Enteric Coated Tablet PO SCH (09:00)
[2020-02-11] MEDS: Brinzolamide 1% Ophth SUSP 10 ml Bottle EA EYE SCH ×3 (09:00→21:03)
[2020-02-11] MEDS ORDERED: Losartan 25 MG TAB PO SCH (09:00)
[2020-02-11] MEDS: Timolol 0.5% Ophth Soln 5 ml Bottle L EYE SCH ×2 (09:05→21:16)
[2020-02-11] MEDS: Brimonidine Tartrate 0.2% Ophth Soln 5 ml Bottle L EYE SCH ×2 (09:13→21:02)
[2020-02-11] MEDS ORDERED: metFORMIN 500 MG TAB PO SCH (09:30)
[2020-02-11 10:54] LABS: Hemoglobin A1c 8.4 % (4.0-6.0)
--- NOTE | 2020-02-11 11:48 | PDOC.NEUPN ---
- Subjective Encounter Date: 02/11/20 Subjective: Patient feels better but still has weakness in the left hand. - Objective Vital Signs & Weight: Vital Signs (12 hours) Temp Pulse Resp BP BP Pulse Ox 02/11/20 11:42 97.7 F 72 14 143/71 H 95 02/11/20 07:22 97.4 F L 77 16 129/73 99 02/11/20 03:41 97.5 F L 70 16 207/83 H 95 Weight Weight 151 lb 4.8 oz I&O: 02/10/20 02/11/20 02/12/20 06:59 06:59 06:59 Intake Total 810 Balance 810 Result Diagrams: 02/09/20 13:40 02/09/20 13:40 Additional Labs: Accuchecks 02/11/20 02/10/20 02/10/20 04:55 20:22 16:41 POC Glucose 132 H 211 H 192 H Radiology Reviewed by me: Yes EKG Reviewed by me: Yes ROS - Review of Systems Constitutional: denies: fever, chills, sweats, weakness, malaise, other Eyes: denies: pain, vision change, conjunctivae inflammation, eyelid inflammation, redness, other ENT: denies: ear pain, ear discharge, nose pain, nose discharge, nose c ongestion, mouth pain, mouth swelling, throat pain, throat swelling, other Respiratory: denies: cough, dry, shortness of breath, hemoptysis, SOB with excertion, pleuritic pain, sputum, wheezing, other Cardiovascular: denies: no pertinent history, AFIB, CAD, CHF, HTN, NE, Syncope, Hyperlipidemia, Mitral valve stenosis, Aortic stenosis, Valve insufficiency, Pulmonary hypertension, Other Neurological: reports: weakness (left hand) All Systems: All other systems reviewed; all pertinent +/- noted in HPI/Subj - Medication Medications: Active Medications Generic Name Dose Route Start Last Admin Trade Name Freq PRN Reason Stop Dose Admin Acetaminophen 650 mg 02/10/20 05:55 02/10/20 07:27 Acetaminophen 325 Mg Tab PO 650 mg Q6H PRN Administration Headache/Fever or Pain Aspirin 325 mg 02/11/20 09:00 02/11/20 08:54 Aspirin 325 Mg Enteric Coated Tablet PO 325 mg DAILY MARCO ANTONIO Administration Atorvastatin Calcium 40 mg 02/09/20 21:00 02/10/20 21:26 Atorvastatin Calcium 40 Mg Tab PO Not Given HS MARCO ANTONIO Brimonidine Tartrate 1 drop 02/10/20 21:00 02/11/20 09:13 Brimonidine Tartrate 0.2% Ophth Soln 5 Ml Bottle L EYE 1 drp Q12HR MARCO ANTONIO Administration Brinzolamide 1 drop 02/10/20 15:00 02/11/20 09:00 Brinzolamide 1% Ophth Susp 10 Ml Bottle EA EYE 1 drop TID MARCO ANTONIO Administration Enoxaparin Sodium 40 mg 02/10/20 21:00 02/10/20 21:05 Enoxaparin Sodium 40 Mg/0.4 Ml Syringe SC 40 mg HS MARCO ANTONIO Administration Glipizide 2.5 mg 02/10/20 21:00 02/11/20 08:55 Glipizide Xl 2.5 Mg Tablet PO 2.5 mg BID MARCO ANTONIO Administration Labetalol HCl 20 mg 02/09/20 15:59 02/10/20 02:37 Labetalol Hcl 100 Mg/20 Ml Vial SLOW IVP 20 mg Q1H PRN Administration BP > 220/110 Losartan Potassium 50 mg 02/11/20 09:00 02/11/20 09:03 Losartan 25 Mg Tab PO 50 mg DAILY MARCO ANTONIO Administration Metformin HCl 1,000 mg 02/11/20 09:30 02/11/20 09:56 Metformin 500 Mg Tab PO 02/11/20 12:00 Not Given NOW MARCO ANTONIO Ondansetron HCl 4 mg 02/09/20 18:22 02/11/20 05:00 Ondansetron Pf 4 Mg/2 Ml Vial IVP 4 mg Q6H PRN Administration Nausea/Vomiting Polyvinyl Alcohol/Povidone 0 each 02/10/20 15:00 02/11/20 08:52 Polyvinyl Alcohol 1.4%/Povidone 0.6% Opth Drops EA EYE 1 each TID MARCO ANTONIO Administration Timolol Maleate 1 drop 02/10/20 21:00 02/11/20 09:05 Timolol 0.5% Ophth Soln 5 Ml Bottle L EYE 1 drp Q12HR MARCO ANTONIO Administration - Exam General Appearance: awake alert Eye: PERRL ENT: normocephalic atraumatic Neck: supple Respiratory: CTAB Cardiovascular: RRR Gastrointestinal: soft Extremities: no cyanosis Skin: normal turgor Neurological - other findings: left hand weakness Musculoskeletal: normal tone, no muscle wasting PSYCH: normal affect, normal behavior, A&O x 3 Results - Labs Result Diagrams: 02/09/20 13:40 02/09/20 13:40 Lab results: WBC 8.3 thou/uL (4.8-10.8) 02/09/20 13:40 Hgb 13.0 g/dL (12.0-16.0) 02/09/20 13:40 Hct 38.0 % (36.0-47.0) 02/09/20 13:40 MCV 87.7 fL (78.0-98.0) 02/09/20 13:40 Plt Count 274 thou/uL (130-400) 02/09/20 13:40 Neutrophils % 63.2 % (42.0-75.0) 02/09/20 13:40 Sodium 139 mmol/L (136-145) 02/09/20 13:40 Potassium 4.1 mmol/L (3.5-5.1) 02/09/20 13:40 Chloride 104 mmol/L (98-107) 02/09/20 13:40 Carbon Dioxide 29 mmol/L (23-31) 02/09/20 13:40 BUN 12 mg/dL (9.8-20.1) 02/09/20 13:40 Creatinine 0.87 mg/dL (0.6-1.1) 02/09/20 13:40 Glucose 88 mg/dL (83-110) 02/09/20 13:40 Calcium 9.3 mg/dL (7.8-10.44) 02/09/20 13:40 Total Bilirubin 0.4 mg/dL (0.2-1.2) 02/09/20 13:40 AST 16 U/L (5-34) 02/09/20 13:40 ALT 9 U/L (8-55) 02/09/20 13:40 Alkaline Phosphatase 62 U/L (40-110) 02/09/20 13:40 Creatine Kinase 226 U/L (29-168) H 02/09/20 13:40 Troponin I Less than 0.010 ng/mL (< 0.028) 02/09/20 13:40 Serum Total Protein 7.2 g/dL (6.0-8.3) 02/09/20 13:40 Albumin 4.0 g/dL (3.4-4.8) 02/09/20 13:40 - Radiology Interpretation CT scan - head Additional Comment: negative for acute intracranial pathology PN A/P (1) CVA (cerebral vascular accident) Code(s): I63.9 - CEREBRAL INFARCTION, UNSPECIFIED Status: Acute (2) Carotid stenosis, left Code(s): I65.22 - OCCLUSION AND STENOSIS OF LEFT CAROTID ARTERY Status: Acute (3) Diabetes mellitus type 2 in obese Code(s): E11.9 - TYPE 2 DIABETES MELLITUS WITHOUT COMPLICATIONS; E66.9 - OBESITY, UNSPECIFIED Status: Acute (4) Hypertension Code(s): I10 - ESSENTIAL (PRIMARY) HYPERTENSION Status: Acute - Plan Daily Plan: PT/OT, speech therapy, out of bed/ambulate, DVT proph w/SCDs 79-year-old female presented with strokelike symptoms. Exam significant for persistent left hand weakness. Head CT reviewed which was negative for acute intracranial pathology. CTA of the head and neck showed stenosis of the left internal carotid artery at the bifurcation. MRI Brain wo to rule out acute intracranial process is pending Allow permissive HTN up to 48 hours Neurochecks every 4 hours. Continue ASA 81mg po daily for secondary stroke prevention. Continue high intensity for secondary stroke prevention. Continue Telemetry to evauate for arryhtmia. Transthoracic Echocardiogram to evaluate for PFO and LVEF is pending Consult PT/OT/Speech Therapy for evaluation Continue home medications. Continue medical management per primary team. Plan discussed with the patient and the nursing staff.
--- NOTE | 2020-02-11 12:53 | CT ---
CT head noncontrast HISTORY: CVA. COMPARISON: 02/09/2020. FINDINGS: There is no evidence of acute intracranial hemorrhage or infarct. Lacunar infarcts within t he basal ganglia and chronic ischemic small vessel disease are again demonstrated. Slight asymmetry of the frontal horns of the lateral ventricles is unchanged. There is no mass effect or shift of midline structures. Prominent calcification within the arterial s tructures. Somewhat ill-defined, irregular hyperdense material is present within the posterior aspect of the rig ht globe. IMPRESSION : Chronic intracranial findings are stable. No acute intracranial abnormalities are demonstrated. Irregular hyperdense material within the right globe. Retinal hemorrhage versus mass. Please correlat e with history and ophthalmologic exam.
[2020-02-11] MEDS: Acetaminophen 325 MG TAB PO PRN (16:41)
[2020-02-11] MEDS: Atorvastatin Calcium 40 MG TAB PO SCH (20:44)
[2020-02-11] MEDS: Enoxaparin Sodium 40 MG/0.4 ML SYRINGE SC SCH (21:01)
[2020-02-12] MEDS: Brinzolamide 1% Ophth SUSP 10 ml Bottle EA EYE SCH ×3 (09:19→20:43)
[2020-02-12] MEDS: metFORMIN 500 MG TAB PO SCH ×2 (09:21→18:16)
[2020-02-12] MEDS: Aggrenox 200-25mg CAP PO SCH ×2 (09:23→20:40)
[2020-02-12] MEDS: Losartan 25 MG TAB PO SCH (09:25)
[2020-02-12] MEDS: Timolol 0.5% Ophth Soln 5 ml Bottle L EYE SCH ×2 (09:26→20:40)
[2020-02-12] MEDS: Brimonidine Tartrate 0.2% Ophth Soln 5 ml Bottle L EYE SCH ×2 (09:31→20:43)
[2020-02-12] MEDS: Polyvinyl Alcohol 1.4%/Povidone 0.6% Opth Drops EA EYE SCH ×3 (09:36→21:03)
--- NOTE | 2020-02-12 11:57 | PDOC.NEUPN ---
- Subjective Encounter Date: 02/12/20 Subjective: Patient complaining of intermittent left facial numbness with dominant numbness and tingling of the left upper extremity with numbness on the left side of the tongue. Head CT was repeated today because of the symptoms which did not reveal acute intracranial pathology. Most likely TIAs. No symptoms at this time - Objective Vital Signs & Weight: Vital Signs (12 hours) Temp Pulse Resp BP Pulse Ox 02/12/20 08:37 99 02/12/20 07:37 98.7 F 68 14 140/80 99 02/12/20 03:34 97.4 F L 67 16 174/82 H 100 Weight Weight 151 lb 4.8 oz I&O: 02/11/20 02/12/20 02/13/20 06:59 06:59 06:59 Intake Total 810 720 Balance 810 720 Result Diagrams: 02/09/20 13:40 02/09/20 13:40 Additional Labs: Accuchecks 02/12/20 02/12/20 02/11/20 10:35 05:12 20:34 POC Glucose 146 H 116 H 167 H 02/11/20 02/11/20 17:08 10:43 POC Glucose 145 H 185 H Radiology Reviewed by me: Yes EKG Reviewed by me: Yes ROS - Review of Systems Constitutional: denies: fever, chills, sweats, weakness, malaise, other Eyes: denies: pain, vision change, conjunctivae inflammation, eyelid inflammation, redness, other ENT: denies: ear pain, ear discharge, nose pain, nose discharge, nose conge stion, mouth pain, mouth swelling, throat pain, throat swelling, other Respiratory: denies: cough, dry, shortness of breath, hemoptysis, SOB with excertion, pleuritic pain, sputum, wheezing, other Neurological: reports: numbness. denies: weakness, incoordination, change in speech, confusion, seizures, other All Systems: All other systems reviewed; all pertinent +/- noted in HPI/Subj - Medication Medications: Active Medications Generic Name Dose Route Start Last Admin Trade Name Freq PRN Reason Stop Dose Admin Acetaminophen 650 mg 02/10/20 05:55 02/11/20 16:41 Acetaminophen 325 Mg Tab PO 325 mg Q6H PRN Administration Headache/Fever or Pain Brimonidine Tartrate 1 drop 02/10/20 21:00 02/12/20 09:31 Brimonidine Tartrate 0.2% Ophth Soln 5 Ml Bottle L EYE 1 drp Q12HR MARCO ANTONIO Administration Brinzolamide 1 drop 02/10/20 15:00 02/12/20 09:19 Brinzolamide 1% Ophth Susp 10 Ml Bottle EA EYE 1 drop TID MARCO ANTONIO Administration Dipyridamole/Aspirin 1 cap 02/12/20 09:00 02/12/20 09:23 Aggrenox 200-25mg Cap PO 1 cap BID MARCO ANTONIO Administration Enoxaparin Sodium 40 mg 02/10/20 21:00 02/11/20 21:01 Enoxaparin Sodium 40 Mg/0.4 Ml Syringe SC Not Given HS MARCO ANTONIO Glipizide 2.5 mg 02/10/20 21:00 02/12/20 09:24 Glipizide Xl 2.5 Mg Tablet PO 2.5 mg BID MARCO ANTONIO Administration Labetalol HCl 20 mg 02/09/20 15:59 02/10/20 02:37 Labetalol Hcl 100 Mg/20 Ml Vial SLOW IVP 20 mg Q1H PRN Administration BP > 220/110 Losartan Potassium 100 mg 02/12/20 09:00 02/12/20 09:25 Losartan 25 Mg Tab PO 100 mg DAILY MARCO ANTONIO Administration Metformin HCl 1,000 mg 02/11/20 17:00 02/12/20 09:21 Metformin 500 Mg Tab PO 1,000 mg BID-WM MARCO ANTONIO Administration Ondansetron HCl 4 mg 02/09/20 18:22 02/11/20 16:36 Ondansetron Pf 4 Mg/2 Ml Vial IVP 4 mg Q6H PRN Administration Nausea/Vomiting Polyvinyl Alcohol/Povidone 0 each 02/10/20 15:00 02/12/20 09:36 Polyvinyl Alcohol 1.4%/Povidone 0.6% Opth Drops EA EYE 1 each TID MARCO ANTONIO Administration Timolol Maleate 1 drop 02/10/20 21:00 02/12/20 09:26 Timolol 0.5% Ophth Soln 5 Ml Bottle L EYE 1 drop Q12HR MARCO ANTONIO Administration - Exam General Appearance: awake alert Eye: PERRL ENT: normocephalic atraumatic Neck: supple Respiratory: CTAB Cardiovascular: RRR Gastrointestinal: soft Extremities: no cyanosis Skin: normal turgor Neurological: no new deficit Musculoskeletal: normal tone, normal strength, no muscle wasting PSYCH: normal affect, normal behavior, A&O x 3 Results - Labs Result Diagrams: 02/09/20 13:40 02/09/20 13:40 Lab results: WBC 8.3 thou/uL (4.8-10.8) 02/09/20 13:40 Hgb 13.0 g/dL (12.0-16.0) 02/09/20 13:40 Hct 38.0 % (36.0-47.0) 02/09/20 13:40 MCV 87.7 fL (78.0-98.0) 02/09/20 13:40 Plt Count 274 thou/uL (130-400) 02/09/20 13:40 Neutrophils % 63.2 % (42.0-75.0) 02/09/20 13:40 Sodium 139 mmol/L (136-145) 02/09/20 13:40 Potassium 4.1 mmol/L (3.5-5.1) 02/09/20 13:40 Chloride 104 mmol/L (98-107) 02/09/20 13:40 Carbon Dioxide 29 mmol/L (23-31) 02/09/20 13:40 BUN 12 mg/dL (9.8-20.1) 02/09/20 13:40 Creatinine 0.87 mg/dL (0.6-1.1) 02/09/20 13:40 Glucose 88 mg/dL (83-110) 02/09/20 13:40 Calcium 9.3 mg/dL (7.8-10.44) 02/09/20 13:40 Total Bilirubin 0.4 mg/dL (0.2-1.2) 02/09/20 13:40 AST 16 U/L (5-34) 02/09/20 13:40 ALT 9 U/L (8-55) 02/09/20 13:40 Alkaline Phosphatase 62 U/L (40-110) 02/09/20 13:40 Creatine Kinase 226 U/L (29-168) H 02/09/20 13:40 Troponin I Less than 0.010 ng/mL (< 0.028) 02/09/20 13:40 Serum Total Protein 7.2 g/dL (6.0-8.3) 02/09/20 13:40 Albumin 4.0 g/dL (3.4-4.8) 02/09/20 13:40 - Radiology Interpretation CT scan - head Additional Comment: Head CT reviewed which was negative for acute intracranial pathology. There is evidence of old infarcts and chronic small vessel disease. Retinal globe hemorrhage is also a possibility. PN A/P (1) CVA (cerebral vascular accident) Code(s): I63.9 - CEREBRAL INFARCTION, UNSPECIFIED Status: Acute (2) Carotid stenosis, left Code(s): I65.22 - OCCLUSION AND STENOSIS OF LEFT CAROTID ARTERY Status: Acute (3) Diabetes mellitus type 2 in obese Code(s): E11.9 - TYPE 2 DIABETES MELLITUS WITHOUT COMPLICATIONS; E66.9 - OBE SITY, UNSPECIFIED Status: Acute (4) Hypertension Code(s): I10 - ESSENTIAL (PRIMARY) HYPERTENSION Status: Acute - Plan Daily Plan: PT/OT, speech therapy, DVT proph w/SCDs 79-year-old female presented with intermittent strokelike symptoms which includes left facial paresthesias, left upper extremity numbness and paresthesias and numbness of the tongue on the left side in addition to weakness of the left hand. Head CT repeated yesterday reviewed which was negative for acute intracranial pathology but did show possible retinal hemorrhage or orbital mass Patient continues to have strokelike symptoms despite being on aspirin. Consider switching to Aggrenox. CTA of the head and neck showed stenosis of the left internal carotid artery at the bifurcation. MRI Brain wo to rule out acute intracranial process is refused by patient. Strict control of blood pressure. Neurochecks every 4 hours. Continue high intensity for secondary stroke prevention. Continue Telemetry to evauate for arryhtmia. Transthoracic Echocardiogram results reviewed which showed normal ejection fraction and no thrombus or PFO. Left ventricular ejection fraction is 55% Continue PT/OT/Speech Therapy Continue home medications. Continue medical management per primary team. Case management on board regarding discharge planning. Plan discussed with the patient, nursing staff and during the stroke rounds. Plan also discussed with Dr. Burton.
--- NOTE | 2020-02-12 12:22 | PDOC.HOSPP ---
- Subjective Encounter Date: 02/12/20 Subjective: Doing okay. She continues to have some intermittent tingling in her left hand and some tingling in her left face. Her NIH has tended to bounce around a bit. - Objective Vital Signs & Weight: Vital Signs (12 hours) Temp Pulse Resp BP Pulse Ox 02/12/20 08:37 99 02/12/20 07:37 98.7 F 68 14 140/80 99 02/12/20 03:34 97.4 F L 67 16 174/82 H 100 Weight Weight 151 lb 4.8 oz I&O: 02/11/20 02/12/20 02/13/20 06:59 06:59 06:59 Intake Total 810 720 Balance 810 720 Result Diagrams: 02/09/20 13:40 02/09/20 13:40 Additional Labs: Accuchecks 02/12/20 02/12/20 02/11/20 10:35 05:12 20:34 POC Glucose 146 H 116 H 167 H 02/11/20 02/11/20 17:08 10:43 POC Glucose 145 H 185 H Hospitalist ROS - Medication Medications: Active Medications Generic Name Dose Route Start Last Admin Trade Name Freq PRN Reason Stop Dose Admin Acetaminophen 650 mg 02/10/20 05:55 02/11/20 16:41 Acetaminophen 325 Mg Tab PO 325 mg Q6H PRN Administration Headache/Fever or Pain Brimonidine Tartrate 1 drop 02/10/20 21:00 02/12/20 09:31 Brimonidine Tartrate 0.2% Ophth Soln 5 Ml Bottle L EYE 1 drp Q12HR MARCO ANTONIO Administration Brinzolamide 1 drop 02/10/20 15:00 02/12/20 09:19 Brinzolamide 1% Ophth Susp 10 Ml Bottle EA EYE 1 drop TID MARCO ANTONIO Administration Dipyridamole/Aspirin 1 cap 02/12/20 09:00 02/12/20 09:23 Aggrenox 200-25mg Cap PO 1 cap BID MARCO ANTONIO Administration Enoxaparin Sodium 40 mg 02/10/20 21:00 02/11/20 21:01 Enoxaparin Sodium 40 Mg/0.4 Ml Syringe SC Not Given HS MARCO ANTONIO Glipizide 2.5 mg 02/10/20 21:00 02/12/20 09:24 Glipizide Xl 2.5 Mg Tablet PO 2.5 mg BID MARCO ANTONIO Administration Labetalol HCl 20 mg 02/09/20 15:59 02/10/20 02:37 Labetalol Hcl 100 Mg/20 Ml Vial SLOW IVP 20 mg Q1H PRN Administration BP > 220/110 Losartan Potassium 100 mg 02/12/20 09:00 02/12/20 09:25 Losartan 25 Mg Tab PO 100 mg DAILY MARCO ANTONIO Administration Metformin HCl 1,000 mg 02/11/20 17:00 02/12/20 09:21 Metformin 500 Mg Tab PO 1,000 mg BID-WM MARCO ANTONIO Administration Ondansetron HCl 4 mg 02/09/20 18:22 02/11/20 16:36 Ondansetron Pf 4 Mg/2 Ml Vial IVP 4 mg Q6H PRN Administration Nausea/Vomiting Polyvinyl Alcohol/Povidone 0 each 02/10/20 15:00 02/12/20 09:36 Polyvinyl Alcohol 1.4%/Povidone 0.6% Opth Drops EA EYE 1 each TID MARCO ANTONIO Administration Timolol Maleate 1 drop 02/10/20 21:00 02/12/20 09:26 Timolol 0.5% Ophth Soln 5 Ml Bottle L EYE 1 drop Q12HR MARCO ANTONIO Administration - Exam General Appearance: NAD, awake alert Eye: anicteric sclera Eye - other findings: Possibly left facial droop that is mild. Right iris is opaque. Heart: RRR, no murmur, no gallops, no rubs, normal peripheral pulses Respiratory: CTAB, no wheezes, no rales, no ronchi, normal chest expansion, no tachypnea, normal percussion Gastrointestinal: soft, non-tender, non-distended, normal bowel sounds, no palpable masses, no hepatomegaly, no splenomegaly, no bruit Extremities: no cyanosis, no clubbing, no edema Neurological - other findings: Persistent mild weakness in the left hand Musculoskeletal: normal tone Psychiatric: normal affect, normal behavior, A&O x 3 Hosp A/P (1) CVA (cerebral vascular accident) Code(s): I63.9 - CEREBRAL INFARCTION, UNSPECIFIED Status: Acute (2) Diabetes mellitus type 2 in obese Code(s): E11.9 - TYPE 2 DIABETES MELLITUS WITHOUT COMPLICATIONS; E66.9 - OBESITY, UNSPECIFIED Status: Acute (3) Hypertension Code(s): I10 - ESSENTIAL (PRIMARY) HYPERTENSION Status: Acute (4) Abnormal computed tomography angiography of head Code(s): R93.0 - ABNORMAL FINDINGS ON DX IMAGING OF SKULL AND HEAD, NEC Status: Acute (5) Carotid stenosis, left Code(s): I65.22 - OCCLUSION AND STENOSIS OF LEFT CAROTID ARTERY Status: Acute - Plan CVA: Left hand weakness and mild left facial droop. Has had some waxing and waning. PT, OT, speech consults obtained. Recommendation is for home with home health and PT. Neurology consult appreciated.. MRI was not obtained as the patient refused. She says that she had some bleeding in her eye the last time an MRI was performed. Echocardiogram was performed. Ejection fraction was normal at 55 to 60% and there was some suggestion of diastolic dysfunction. She was originally started on statin and aspirin. Given the variation in her symptoms and findings we have changed to Aggrenox. I did discuss the potential bleeding concerns in the right I found on her repeat CT scan. I discussed this with her finishing frame runner, Dr. Brito. He says her right eye is nonfunctional and he has n o concerns about us to using any level of anticoagulation or antiplatelet therapy that we need. If the patient does not respond significantly to the Aggrenox the next step would be adding Plavix. Hypertension: Initially allowed some permissive hypertension. After 48 hours the focus turned more to improved blood pressure control. Her home dose of lovastatin 50 mg was increased to 100 mg/day on 02/12/2020. Diabetes mellitus: Blood sugars were initially running high however they did improve promptly with increase of her Metformin from 500 mg twice daily to 1000 mg twice daily. Remained in acceptable range. Left carotid stenosis: Nonobstructive. No indication for intervention other than medical management. 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 She will likely need outpatient follow-up for direct visualization exam.
[2020-02-12] MEDS: Enoxaparin Sodium 40 MG/0.4 ML SYRINGE SC SCH (20:47)
[2020-02-12] MEDS ORDERED: Atorvastatin Calcium 40 MG TAB PO SCH (21:00)
[2020-02-13] MEDS: Losartan 25 MG TAB PO SCH (09:05)
[2020-02-13] MEDS: Aggrenox 200-25mg CAP PO SCH ×2 (09:05→11:38)
[2020-02-13] MEDS: Timolol 0.5% Ophth Soln 5 ml Bottle L EYE SCH ×2 (09:06→22:06)
[2020-02-13] MEDS: Brimonidine Tartrate 0.2% Ophth Soln 5 ml Bottle L EYE SCH ×2 (09:07→21:48)
[2020-02-13] MEDS: Brinzolamide 1% Ophth SUSP 10 ml Bottle EA EYE SCH ×3 (09:07→21:36)
[2020-02-13] MEDS: metFORMIN 500 MG TAB PO SCH (09:30)
[2020-02-13] MEDS: Acetaminophen 325 MG TAB PO PRN (09:31)
--- NOTE | 2020-02-13 12:19 | CON ---
DATE OF CONSULTATION: 02/13/2020 Ms. Mcghee reports that since starting on Aggrenox, she has been having a pretty significant headache. She also had watery diarrhea. She had trouble controlling her bowels. She is also complaining of itching from the EKG pads. On exam, she still has a left facial droop. There are diminished rapid alternating movements in the left hand with some distal weakness as well. She reports some paresthesias on the left arm and leg. Gait was not tested. No abnormal movements were seen. Her speech was otherwise clear and fluent. Her visual acuity in her left eye is at baseline, and she was able to read numbers on the clock across of room. I would discontinue Aggrenox given the side effects and start her on aspirin 81 mg per day. Job ID: [id number]
[2020-02-13] MEDS: Polyvinyl Alcohol 1.4%/Povidone 0.6% Opth Drops EA EYE SCH ×3 (13:02→21:18)
--- NOTE | 2020-02-13 13:05 | PDOC.HOSPP ---
- Subjective Encounter Date: 02/13/20 Encounter Time: 10:00 Subjective: Patient seen and examined for acute CVA. Denies any new focal deficit. Continues to have generalized headache. Watery diarrhea on and off since last night. Also has some nausea with heartburn. - Objective Vital Signs & Weight: Vital Signs (12 hours) Temp Pulse Resp BP BP Pulse Ox 02/13/20 12:00 98.3 F 77 16 137/76 100 02/13/20 07:42 98.4 F 74 18 187/81 H 100 02/13/20 03:44 97.8 F 69 16 153/70 H 100 Weight Weight 151 lb 4.8 oz I&O: 02/12/20 02/13/20 02/14/20 06:59 06:59 06:59 Intake Total 720 920 240 Balance 720 920 240 Result Diagrams: 02/09/20 13:40 02/09/20 13:40 Additional Labs: Accuchecks 02/13/20 02/12/20 02/12/20 10:11 21:04 16:26 POC Glucose 204 H 150 H 120 H Radiology Reviewed by me: Yes (CT brainreviewed) EKG Reviewed by me: Yes (Sinus rhythm on telemetry) Hospitalist ROS - Review of Systems Respiratory: denies: cough, dry, shortness of breath, hemoptysis, SOB with excertion, pleuritic pain, sputum, wheezing, other Cardiovascular: denies: chest pain, palpitations, orthopnea, paroxysmal noc. dyspnea, edema, light headedness, other - Medication Medications: Active Medications Generic Name Dose Route Start Last Admin Trade Name Davidq PRN Reason Stop Dose Admin Acetaminophen 650 mg 02/10/20 05:55 02/11/20 16:41 Acetaminophen 325 Mg Tab PO 325 mg Q6H PRN Administration Headache/Fever or Pain Brimonidine Tartrate 1 drop 02/10/20 21:00 02/13/20 09:07 Brimonidine Tartrate 0.2% Ophth Soln 5 Ml Bottle L EYE 1 drp Q12HR MARCO ANTONIO Administration Brinzolamide 1 drop 02/10/20 15:00 02/13/20 09:07 Brinzolamide 1% Ophth Susp 10 Ml Bottle EA EYE 1 drop TID MARCO ANTONIO Administration Enoxaparin Sodium 40 mg 02/10/20 21:00 02/12/20 20:47 Enoxaparin Sodium 40 Mg/0.4 Ml Syringe SC 40 mg HS MARCO ANTONIO Administration Glipizide 2.5 mg 02/10/20 21:00 02/13/20 09:05 Glipizide Xl 2.5 Mg Tablet PO 2.5 mg BID MARCO ANTONIO Administration Labetalol HCl 20 mg 02/09/20 15:59 02/10/20 02:37 Labetalol Hcl 100 Mg/20 Ml Vial SLOW IVP 20 mg Q1H PRN Administration BP > 220/110 Losartan Potassium 100 mg 02/12/20 09:00 02/13/20 09:05 Losartan 25 Mg Tab PO 100 mg DAILY MARCO ANTONIO Administration Metformin HCl 1,000 mg 02/11/20 17:00 02/13/20 09:30 Metformin 500 Mg Tab PO 1,000 mg BID-WM MARCO ANTONIO Administration Ondansetron HCl 4 mg 02/09/20 18:22 02/11/20 16:36 Ondansetron Pf 4 Mg/2 Ml Vial IVP 4 mg Q6H PRN Administration Nausea/Vomiting Polyvinyl Alcohol/Povidone 0 each 02/10/20 15:00 02/12/20 21:03 Polyvinyl Alcohol 1.4%/Povidone 0.6% Opth Drops EA EYE Not Given TID MARCO ANTONIO Sodium Chloride 10 ml 02/09/20 15:59 02/12/20 20:40 Flush - Normal Saline 10 Ml Syringe IVF 10 ml PRN PRN Administration Saline Flush Timolol Maleate 1 drop 02/10/20 21:00 02/13/20 09:06 Timolol 0.5% Ophth Soln 5 Ml Bottle L EYE 1 drop Q12HR MARCO ANTONIO Administration - Exam General Appearance: NAD Neck: supple, no JVD Heart: RRR, no gallops Respiratory: no wheezes, no ronchi Gastrointestinal: soft, non-distended Neurological: no new deficit Psychiatric: A&O x 3 Hosp A/P - Plan DVT proph w/lovenox, DVT proph w/SCDs Acute CVA Patient refused MRI due to risk of bleeding in the right eye Echocardiogram showed ejection fraction 55 to 60% with diastolic dysfunction, mild MR and mild TR Diabetes mellitus type 2 Hypertension Left-sided moderate carotid stenosis Statin allergy Plan: Continue Aggrenox. Patient is statin intolerant. Continue Lovenox for DVT prophylaxis. Will discuss with neurology due to headache along with nausea and diarrhea. Metformin will be held. Continue losartan. Will continue sliding scale. Continue other medications as above. Hemoglobin A1c was 8.4. Consult foster care case manager for home health care. Discharge in 24-hour if stable.
[2020-02-13] MEDS: Enoxaparin Sodium 40 MG/0.4 ML SYRINGE SC SCH (21:21)
[2020-02-14] MEDS: Acetaminophen 325 MG TAB PO PRN (03:41)
[2020-02-14] MEDS: Polyvinyl Alcohol 1.4%/Povidone 0.6% Opth Drops EA EYE SCH (08:03)
[2020-02-14] MEDS: Losartan 25 MG TAB PO SCH (08:03)
[2020-02-14] MEDS: Brimonidine Tartrate 0.2% Ophth Soln 5 ml Bottle L EYE SCH (08:04)
[2020-02-14] MEDS: Timolol 0.5% Ophth Soln 5 ml Bottle L EYE SCH (08:04)
[2020-02-14] MEDS: Brinzolamide 1% Ophth SUSP 10 ml Bottle EA EYE SCH (08:04)
[2020-02-14] MEDS ORDERED: Aspirin Chewable 81 MG TAB PO SCH (09:00)
--- NOTE | 2020-02-14 10:51 | PDOC.DS.DS ---
Provider - Provider Date of Admission: 02/10/20 14:22 Date of Discharge: 02/14/20 Admitting Provider: Piero Burton MD Consultations: Neurology Primary Care Physician: Grey White Course - Hospital Course Hospital Course: This patient is a 79-year-old female whose medical history includes hypertension and diabetes who presented to the hospital with acute onset of left arm numbness and weakness. She was admitted due to her concern for an acute stroke. She had a CT of the head done that did not show any acute stroke and no bleeding. The ER physician had discussed option of TPA with the patient but she opted not to. She was placed on aspirin. 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 Unfortunately patient was unable to tolerate an MRI due to retinal implant. We discussed further options for this nasopharyngeal mass and we are going to have her set up with an ENT physician. I believe she needs to have a biopsy of this lesion to figure out what it is. Patient otherwise seems to have done well since admission. She will go home today with home health physical therapy. 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 The patient will have outpatient appointment with ENT services. - Labs Lab Results: 02/09/20 13:40 02/09/20 13:40 - Physical Exam Vitals: Vital Signs (12 hours) Temp Pulse Resp BP BP Pulse Ox 02/14/20 07:55 152/68 H 02/14/20 07:40 98.3 F 65 16 200/86 H 100 02/14/20 03:17 97.7 F 68 16 167/71 H 100 02/14/20 00:00 97.8 F 79 20 136/65 98 Weight Weight 151 lb 4.8 oz Physical Exam: The patient was seen and examined on the day of discharge. Problem - Discharge Plan Assessment: Patient will follow up outpatient with ENT services. Plan - Discharge Medications Home Medications: Medication Instructions Recorded Confirmed Type Brimonidine Tartrate/Timolol 1 drop L EYE Q12H 07/08/15 02/09/20 History [Combigan 0.2%-0.5% Eye Drops] Brinzolamide [Azopt 1% Ophth SUSP] 1 drop EA EYE TID 07/08/15 02/09/20 History Carboxymethylcellulose Sodium 1 drop EA EYE TID 07/08/15 02/09/20 History [Refresh Tears] Estradiol [Estrace 0.01% Vaginal 1 gm VAG .2X'S/WEEK 06/10/18 02/09/20 History Cream] Triamcinolone Acetonide 1 tab TOP PRN PRN 06/10/18 02/09/20 History [Triamcinolone Acetonide 0.5% Cream] glipiZIDE/metFORMIN HCl 1 each PO DAILY 06/10/18 02/09/20 History [Glipizide-Metformin 2.5-500 mg] Furosemide [Lasix] 20 mg PO PRN PRN 02/09/20 02/09/20 History Losartan [Cozaar] 50 mg PO DAILY 02/09/20 02/09/20 History Aspirin Chewable [Aspirin Chewable 81 mg PO DAILY tab 02/14/20 Rx Tablet] Brimonidine Tartrate [Alphagan 1 drop L EYE Q12HR bot 02/14/20 Rx 0.2% Ophth Soln] Polyvinyl Alcohol/Povidone/PF 0 each EA EYE TID bot 02/14/20 Rx [Refresh Classic Eye Drops] Timolol Maleate [Timoptic 0.5% 1 drop L EYE Q12HR bot 02/14/20 Rx Ophth Soln] Allergies: atorvastatin [From Lipitor] Allergy (Verified 02/12/20 07:09) clindamycin Allergy (Verified 06/10/18 13:42) Penicillins Allergy (Verified 06/10/18 13:42) - Discharge Instructions Activity:: Activity as Tolerated Nourishment:: Diabetic Diet Therapies:: Physical Therapy - Follow up Plan Referrals: Evangelina White-Juan Whelan MD [Primary Care Provider] - Toy Griffin MD [Active] - 7 Days (Bring the CT of brain disk with you to your appointment.) Disposition: HOME Quality - Care Measures CORE MEASURES:: Stroke/TIA - Stroke/TIA Did you prescribe antithrombotic therapy?: Yes Did you prescribe anticoagulant for A Fib/Flutter?: No Specify reason for no DC anticoagulant: Treatment not indicated Did you prescribe a statin medication?: No Specify reason for no DC statin medication: Statins not tolerated (patient is intolerant of statins)
[2020-02-14 11:53] VITALS: BP 178/74; TEMP 98
--- NOTE | 2020-02-17 05:53 | PQF ---
CLINICAL DOCUMENTATION CLARIFICATION FORM: Dear : Erick Nowak Date / Time: 02/17/2020 0552 Please exercise your independent, professional judgment in responding to the clarification form. Clinical indicators are provided on the bottom of this form for your review In your clinical opinion based on clinical findings below, can you please identify the etiology of Left hand weakness if due to: Please check appropriate box(es): [ ] Acute CVA [x ] TIA due to Left Carotid Stenosis [ ] Other diagnosis, please specify [ ] Unable to determine Physician Signature: Date/Time: For continuity of documentation, please document condition throughout progress notes and discharge summary. Thank You To be completed by CDI/Coding staff for physician review: Present Clinical Indicators - Signs / Symptoms / Labs Results and Location in Medical Record [X] BP 183/99, Pulse 81, Resp 20, temp 97.7 Vital signs 02/08 [X] NIHSS total 2 Neuro panel 02/08 [X] CT Brain : Moderate chronic microvascular ischemic changes Imaging Dr Ha 02/08 [X] CT angiogran : Moderate stenosis to left carotid bifurcation Imaging Dr Neville 02/08 [X] she develop some weakness in her left hand H&P p1 02/08 Dr Burton [X] HTN likely some reactive hypertension due to CVA on her chronic hypertension H&P p4 02/08 Dr Burton [X] Left carotid stenosis H&P p4 02/08 Dr Burton [X] Head CT was repeated because of the symptoms which did not reveal acute intracrnial pathology. Most likely TIA Neuro PN p1 02/11 Dr Reddy Present Risk Factors Results and Location in Medical Record [X] 79 year-old Female H&P p1 02/08 Dr Burton [X] DM H&P p1 02/08 Dr Burton [X] HTN H&P p1 02/08 Dr Burton [X] Obesity H&P p4 02/08 Dr Burton [X] Left carotid stenosis H&P p4 02/08 Dr Burton [X] HLD ED Notes 02/08 Present Treatments Results and Location in Medical Record [X] Neuro consult Consult Dr Reddy 02/08 [X] PT/OT/Speech therapy Consult Dr Reddy 02/08 [X] IVF NS 1L JUN 02 [X] Agrrenox 1 cap oral JUN 02 [X] Aspirin 81 mg oral JUN 02 [X] Lovenox 40mg Subcu JUN 02 CDS/Byproducts Maker Signature: Porsche Moon Phone #: ext [phone] Date/Time: 02/16/2020 0552 This is a permanent part of the Medical Record [facility]
== END 2020-02-14 14:43 | disposition home health service (06) | DRG 68 ==
LOC: ERS 13:23 → INTOOBSV 15:41 → 2SE 15:41 → OBSVTOIN 02-10 14:22
PROVIDERS: ADMIT Internal Medicine; ATTEND Hospitalist
DX: I65.22 Occlusion and stenosis of left carotid artery (principal); I16.1 Hypertensive emergency; Z20.828 Contact with and (suspected) exposure to other viral communicable diseases; I10 Essential (primary) hypertension; E11.9 Type 2 diabetes mellitus without complications; E66.9 Obesity, unspecified; Z96.21 Cochlear implant status; E78.5 Hyperlipidemia, unspecified; I08.1 Rheumatic disorders of both mitral and tricuspid valves; Z53.29 Procedure and treatment not carried out because of patient's decision for other reasons; J34.89 Other specified disorders of nose and nasal sinuses; Z68.24 Body mass index [BMI] 24.0-24.9, adult; Z88.1 Allergy status to other antibiotic agents; Z88.0 Allergy status to penicillin; Z86.73 Personal history of transient ischemic attack (TIA), and cerebral infarction without residual deficits; Z98.51 Tubal ligation status; Z88.8 Allergy status to other drugs, medicaments and biological substances
CPT/HCPCS: 36415; 36416; 70450; 70496; 70498; 80053; 80061; 82550; 83036; 84443; 84484; 85025; 85610; 85730; 87635; 93005; 93306; 96374; G0378; J1650; J2405; J2997; Q9967; U0003

== ENCOUNTER 2020-05-16 15:18 | Inpatient (IN) | payer MEDICARE, MEDICAID ==
[2020-05-16] MEDS ORDERED: Metoclopramide HCl 10 MG/2 ML VIAL ONE (15:36)
[2020-05-16] MEDS ORDERED: Acetaminophen 500 MG TAB ONE (15:36)
[2020-05-16] MEDS ORDERED: diphenhydrAMINE 50 MG/ML VIAL ONE (15:36)
--- NOTE | 2020-05-16 16:13 | CT ---
EXAM: CT brain without contrast HISTORY: Headache with nausea and vomiting COMPARISON: 02/11/2020 TECHNIQUE: Multiple contiguous axial images were obtained and a CT of the brain without contrast. FINDINGS: There are scattered hypodensities in the subcortical and periventricular white matter consi stent with small vessel ischemic disease. There is no evidence of hydrocephalus, intracranial hemorrhage, or extra-axial fluid collection. The calvarium and overlying soft tissues are unremarkable. The visualized paranasal sinuses and masto id air cells are well aerated. IMPRESSION: No evidence of acute intracranial abnormality
[2020-05-16 17:06] LABS: #Lymphocytes 1.6 thou/uL (1.20-3.40); #Monocytes 0.4 thou/uL (0.11-0.59); #Neutrophils 8.8 thou/uL (1.40-6.50); %Basophils 0.4 % (0.0-1.0); %Eosinophils 0.1 % (0.0-10.0); %Lymphocytes 14.9 % (21.0-51.0); %Monocytes 3.3 % (0.0-10.0); %Neutrophils 81.3 % (42.0-75.0); Hemoglobin 13.6 g/dL (12.0-16.0); Mean Corpuscular HGB CONC 31.8 g/dL (32.0-36.0); Mean Corpuscular Hemoglobin 27.6 pg (27.0-31.0); Mean Corpuscular Volume 86.7 fL (78.0-98.0); Mean Platelet Volume 7.8 fL (7.4-10.4); Platelet Count 315 thou/uL (130-400); RBC Distribution Width 11.9 % (11.5-14.5); Red Blood Cell (RBC) Count 4.92 mill/uL (4.20-5.40); White Blood Cell (WBC) Count 10.8 thou/uL (4.8-10.8)
[2020-05-16] MEDS ORDERED: Nitroglycerin 2% Ointment 1 INCH/1 GM Packet ONE (17:09)
[2020-05-16] MEDS ORDERED: hydrALAZINE 20 MG/ML VIAL ONE (17:09)
[2020-05-16 17:12] LABS: PTT 30.9 sec (22.9-36.1); Prothrombin Time 13.6 sec (12.0-14.7)
[2020-05-16 17:41] LABS: ALT (SGPT) 10 U/L (8-55); AST (SGOT) 15 U/L (5-34); Albumin 4.2 g/dL (3.4-4.8); Alkaline Phosphatase 71 U/L (40-110); Anion Gap 14 mmol/L (10-20); BUN (Urea Nitrogen) 14 mg/dL (9.8-20.1); Bilirubin, Total 0.4 mg/dL (0.2-1.2); Calc. Creatinine Clearance 0 mL/min (70-130); Calcium 8.9 mg/dL (7.8-10.44); Carbon Dioxide 26 mmol/L (23-31); Chloride 102 mmol/L (98-107); Globulin 3.1 g/dL (2.4-3.5); Glucose 216 mg/dL (83-110); Potassium 3.7 mmol/L (3.5-5.1); Protein, Total 7.3 g/dL (5.8-8.1); Sodium 138 mmol/L (136-145)
[2020-05-16] MEDS ORDERED: Nitroglycerin 0.4 MG TAB 1 EACH ONE (17:48)
[2020-05-16 18:32] LABS: Bacteria/HPF None Seen HPF (None Seen); Bilirubin Negative (Negative); Blood, Urine Negative (Negative); Clarity Clear (Clear); Glucose, Urine (Dipstick) 200 mg/dL (Negative); Ketone, Urine 20 mg/dL (Negative); Leukocyte Negative Leu/uL (Negative); Nitrite Negative (Negative); Protein, Urine (Dipstick) 100 mg/dL (Neg-Trace); RBC/HPF 0-3 HPF (0-3); Specific Gravity, Urine 1.009 (1.002-1.036); Squamous Epithelial 0-3 HPF (0-3); Urobilinogen Normal mg/dL (Less than 2); WBC/HPF 0-3 HPF (0-3); pH, Urine 6.5 (5.0-9.0)
[2020-05-16] MEDS ORDERED: Metoprolol Tartrate 5 MG/5 ML VIAL IVP PRN (21:11)
[2020-05-16] MEDS ORDERED: Brimonidine Tartrate 0.2% Ophth Soln 5 ml Bottle L EYE SCH (21:45)
[2020-05-16] MEDS ORDERED: Brinzolamide 1% Ophth SUSP 10 ml Bottle EA EYE SCH (21:45)
[2020-05-16] MEDS ORDERED: HumaLOG 300 UNITS/3 ML VIAL SC PRN (22:00)
[2020-05-16] MEDS ORDERED: Dextrose 5% in Water 1,000 ML IV PRN (22:00)
[2020-05-16] MEDS ORDERED: Dextrose 50% Abboject 50 ML SYRINGE SLOW IVP PRN (22:00)
--- NOTE | 2020-05-16 23:16 | HP ---
REASON FOR ADMISSION: Headache. HISTORY OF PRESENT ILLNESS: This is a 80-year-old female patient, who presented to the ER complaining of vomiting, history going back to the night before her presentation. She started having a headache that was located in the frontal area, severe in intensity and constant. In the morning, she started vomiting. Currently, she appears to be much better. Upon her arrival to the ER, she was found to have a high blood pressure, initially 191/97, then 232/100. She was given hydralazine and nitroglycerin transdermally. Her blood pressure did respond. Currently, she is not in any distress. Reviewing her records, she seems to have been admitted to our hospital in January of 2020 for possible stroke. MRI of the brain was not done because of her corneal implants. Since then, she tells me that metformin and glipizide were added to her medication. Otherwise, she has been doing well. She has been compliant with her antihypertensive agents. PAST MEDICAL HISTORY: 1. High blood pressure. 2. Diabetes. 3. GERD. 4. Post cataract surgery, followed by complications. 5. Constipation. SOCIAL HISTORY: She does not smoke. Does not drink alcohol. ALLERGIES: TO ATORVASTATIN, CLINDAMYCIN, PENICILLIN. FAMILY HISTORY: Negative for premature coronary artery disease. REVIEW OF SYSTEMS: All systems reviewed, except the above mentioned found to be negative. PHYSICAL EXAMINATION: GENERAL: Awake, alert, oriented, does not appear in distress. VITAL SIGNS: Her blood pressure is 161/75, heart rate of 125. She had a temperature of 100.2, saturating 100% on room air. HEENT: Head is nontraumatic, normocephalic. Pupils equal, reactive. Extraocular movements are intact. Nonicteric sclerae. Well-injected conjunctivae. Oral mucosa normal. Nasal mucosa normal. NECK: Supple. No adenopathy. No murmur. Thyroid is not palpable. Trachea is midline. No supraclavicular adenopathy. HEART: S1, S2, regular. No murmur. No gallop. No friction rubs. No displacement of PMI. LUNGS: Clear to auscultation bilaterally. No wheezes. No rhonchi. No crackles. ABDOMEN: Bowel sounds are positive. Slight tenderness on palpation of her epigastric area. EXTREMITIES: No lower extremity edema. No cyanosis. NEURO: Cranial nerves II through XII within normal limits. Normal motor function. Normal sensory function, reflexes. LABORATORY DATA: Blood work shows a WBC of 10.8, hemoglobin 13.6, platelets 315. Sodium of 138, potassium 3.7, creatinine 1.01. Glucose 216 and troponin 0.011. Urinalysis, negative for an infection, positive for protein and glucose. ASSESSMENT AND PLAN: This is a 80-year-old female patient presenting with hypertensive urgency with headaches and nausea and vomiting, currently doing better. 1. Cardiac: The patient to be admitted to telemetry. We will restart her on her medications. We will have her on IV Lopressor on as needed basis. We will continue with baby aspirin. Recheck her cardiac enzymes. 2. We will restart her eyedrops. 3. For DVT prophylaxis, she should be on SCDs. 4. For her GERD, which seems to have been not very well controlled, we will have her on IV Protonix b.i.d. 5. For her diabetes, we will resume her current medication. She will be on insulin sliding scale. Job ID: [id number]
[2020-05-17] MEDS ORDERED: Metoprolol Tartrate 5 MG/5 ML VIAL ONE (00:31)
[2020-05-17] MEDS ORDERED: Labetalol HCl 100 MG/20 ML VIAL ONE (03:32)
[2020-05-17] MEDS: Labetalol HCl 100 MG/20 ML VIAL SLOW IVP PRN (03:37)
[2020-05-17 05:16] LABS: SARS-CoV-2 PCR by NAA Not Detected (NotDetected)
[2020-05-17] MEDS ORDERED: cloNIDine 0.1 MG TAB ONE ×2 (05:24→10:21)
[2020-05-17] MEDS: cloNIDine 0.1 MG TAB PO PRN ×3 (05:27→16:54)
[2020-05-17] MEDS ORDERED: Pantoprazole 40 MG VIAL ONE (09:13)
[2020-05-17] MEDS ORDERED: Aspirin Chewable 81 MG TAB ONE (09:13)
[2020-05-17] MEDS: Pantoprazole 40 MG VIAL IVP SCH ×2 (09:27→20:45)
[2020-05-17] MEDS: Aspirin Chewable 81 MG TAB PO SCH (09:29)
[2020-05-17] MEDS: Losartan 25 MG TAB PO SCH (09:31)
--- NOTE | 2020-05-17 13:04 | PDOC.BPN ---
- Brief Progress Note [id number] dictated
--- NOTE | 2020-05-17 14:14 | PRG ---
DATE OF SERVICE: 05/17/2020 SUBJECTIVE: The patient was admitted last night. She is a 80-year-old female with history of hypertension, diabetes, GERD. She was admitted with headache. The patient had a blood pressure of 232/100. The patient was given hydralazine and nitroglycerin transdermally. Her blood pressure responded. She was admitted back in January 2020 for possible stroke. MRI of the brain was not done at that time because of corneal implant. The patient is still having a headache, but is better than yesterday. She is still feeling nauseous. OBJECTIVE: GENERAL: She is awake, in mild distress. VITAL SIGNS: Blood pressure is 168/76, pulse of 89, O2 saturation is 100%. HEAD AND NECK: Normocephalic and atraumatic. Neck is supple. CHEST: Fair bilateral air entry. HEART: S1 and S2. Regular. ABDOMEN: Soft and nontender. NEURO: Awake, alert. No focal deficits. PSYCH: Unable to assess. EXTREMITIES: No clubbing, no cyanosis. LABORATORY DATA: Sodium 138, potassium 3.7, BUN is 14, creatinine 1.6. WBC 7.8, hemoglobin 13.6, platelet 315. COVID-19 test negative. Troponin 0.01. IMAGING STUDIES: CT of the brain, no acute findings. ASSESSMENT: 1. Acute hypertensive urgency. 2. Headache. 3. Diabetes mellitus with hyperglycemia. 4. History of CVA. PLAN: 1. Continue to monitor the patient's blood pressure. It is improving. 2. Continue with losartan, and the patient also getting clonidine p.r.n., we will add metoprolol p.o. 3. DVT prophylaxis, SCDs. 4. We will continue to monitor the patient today, and if the blood pressure improved and symptoms improved, possible discharge in a.m. Job ID: [id number]
[2020-05-17] MEDS: Brinzolamide 1% Ophth SUSP 10 ml Bottle EA EYE SCH ×2 (16:21→20:49)
[2020-05-17] MEDS: Timolol 0.5% Ophth Soln 5 ml Bottle L EYE SCH ×2 (16:21→20:56)
[2020-05-17] MEDS: Brimonidine Tartrate 0.2% Ophth Soln 5 ml Bottle L EYE SCH ×2 (16:21→20:55)
[2020-05-17 16:23] VITALS: BMI 24.0
[2020-05-17] MEDS ORDERED: Acetaminophen 325 MG TAB PO PRN (20:45)
[2020-05-18 04:38] LABS: #Eosinphils 0.2 thou/uL (0.0-0.7); #Lymphocytes 2.9 thou/uL (1.20-3.40); #Monocytes 0.6 thou/uL (0.11-0.59); #Neutrophils 6.4 thou/uL (1.40-6.50); %Basophils 0.5 % (0.0-1.0); %Eosinophils 1.7 % (0.0-10.0); %Lymphocytes 28.8 % (21.0-51.0); %Monocytes 5.5 % (0.0-10.0); %Neutrophils 63.4 % (42.0-75.0); Hemoglobin 11.4 g/dL (12.0-16.0); Mean Corpuscular HGB CONC 34.6 g/dL (32.0-36.0); Mean Corpuscular Hemoglobin 30.4 pg (27.0-31.0); Mean Corpuscular Volume 87.9 fL (78.0-98.0); Mean Platelet Volume 8.3 fL (7.4-10.4); Platelet Count 193 thou/uL (130-400); RBC Distribution Width 11.7 % (11.5-14.5); Red Blood Cell (RBC) Count 3.76 mill/uL (4.20-5.40)
[2020-05-18 04:49] LABS: Anion Gap 10 mmol/L (10-20); BUN (Urea Nitrogen) 13 mg/dL (9.8-20.1); Calc. Creatinine Clearance 62 mL/min (70-130); Calcium 8.3 mg/dL (7.8-10.44); Carbon Dioxide 22 mmol/L (23-31); Chloride 105 mmol/L (98-107); Glucose 176 mg/dL (83-110); Potassium 3.4 mmol/L (3.5-5.1); Sodium 134 mmol/L (136-145)
[2020-05-18 04:55] LABS: Troponin I 0.055 ng/mL (< 0.028)
[2020-05-18] MEDS ORDERED: Lisinopril 2.5 MG TAB PO SCH (09:00)
[2020-05-18] MEDS ORDERED: FLU VACC QS2020-21(65YR UP)/PF 240 MCG/0.7 ML SYRINGE IM ONE (09:00)
[2020-05-18] MEDS: Aspirin Chewable 81 MG TAB PO SCH (09:55)
[2020-05-18] MEDS: Losartan 25 MG TAB PO SCH (09:56)
[2020-05-18] MEDS: Pantoprazole 40 MG VIAL IVP SCH ×2 (09:56→21:46)
[2020-05-18] MEDS: Timolol 0.5% Ophth Soln 5 ml Bottle L EYE SCH ×2 (09:57→21:47)
[2020-05-18] MEDS: Brimonidine Tartrate 0.2% Ophth Soln 5 ml Bottle L EYE SCH ×2 (09:57→21:46)
[2020-05-18] MEDS: Brinzolamide 1% Ophth SUSP 10 ml Bottle EA EYE SCH ×3 (09:57→21:46)
[2020-05-18] MEDS: Labetalol HCl 100 MG/20 ML VIAL SLOW IVP PRN (12:40)
--- NOTE | 2020-05-18 13:41 | PDOC.BPN ---
- Brief Progress Note [id number] Dischage summary
[2020-05-18] MEDS: cloNIDine 0.1 MG TAB PO PRN (14:38)
[2020-05-19] MEDS: cloNIDine 0.1 MG TAB PO PRN ×2 (01:45→20:09)
--- NOTE | 2020-05-19 07:27 | DIS ---
DATE OF ADMISSION: 05/16/2020 DATE OF DISCHARGE: 05/18/2020 DISCHARGE DIAGNOSES: 1. Hypertensive urgency. 2. Headache. 3. Diabetes mellitus. 4. Hyperglycemia. 5. History of cerebrovascular accident. HOSPITAL COURSE: The patient was admitted with headache. She had an elevated blood pressure of 232/100. Hypertension was treated with hydralazine and nitroglycerin transdermally. The patient also continued on her home medications of losartan. Blood pressure has been slowly improving. This morning, systolic blood pressure in the 140s. The patient's headache is improving. We will continue to monitor the patient for the next few hours. If her blood pressure remains stable, she will be able to be discharged home and to continue on her antihypertensives, which she takes at home, which is losartan. PHYSICAL EXAMINATION: GENERAL: Awake, alert, does not appear to be in acute distress. VITAL SIGNS: Blood pressure 140/70, pulse is 70, respiratory rate is 16. The patient is afebrile. HEAD AND NECK: Normocephalic and atraumatic. Neck is supple. CHEST: Fair bilateral air entry. HEART: S1, S2. Regular. ABDOMEN: Soft and nontender. Bowel sounds present. NEUROLOGIC: Awake, alert, moving extremities. PSYCH: Normal mood. LABORATORY DATA: During hospital stay, the patient had CT of the brain, which was unremarkable. No acute finding. ASSESSMENT: As above. PLAN: The patient to be discharged home if her blood pressure remains stable today with systolic blood pressure less than 170 and to continue losartan, and the patient was advised to follow with her primary care physician in one or two weeks. ACTIVITY: As tolerated. Discharge diagnosis, as above. Job ID: [id number]
[2020-05-19] MEDS ORDERED: Amlodipine 5 MG TAB PO SCH ×2 (09:00→16:30)
[2020-05-19] MEDS: Aspirin Chewable 81 MG TAB PO SCH (09:02)
[2020-05-19] MEDS: Losartan 25 MG TAB PO SCH (09:02)
[2020-05-19] MEDS: Pantoprazole 40 MG VIAL IVP SCH ×2 (09:03→20:11)
[2020-05-19] MEDS: Timolol 0.5% Ophth Soln 5 ml Bottle L EYE SCH ×2 (09:04→20:09)
[2020-05-19] MEDS: Brimonidine Tartrate 0.2% Ophth Soln 5 ml Bottle L EYE SCH ×2 (09:04→20:09)
[2020-05-19] MEDS: Brinzolamide 1% Ophth SUSP 10 ml Bottle EA EYE SCH ×3 (09:04→20:09)
[2020-05-19] MEDS ORDERED: metFORMIN 500 MG TAB PO SCH (12:00)
[2020-05-19] MEDS ORDERED: Docusate 100 MG CAP PO SCH (12:00)
--- NOTE | 2020-05-19 12:35 | PDOC.BPN ---
- Brief Progress Note [id number] progree note
--- NOTE | 2020-05-19 12:58 | PRG ---
DATE OF SERVICE: 05/19/2020 SUBJECTIVE: The patient states that she is feeling better today, but she is concerned about the blood pressure being high. Systolic blood pressure remains around 190. Discharge was held yesterday because of elevated blood pressure. The patient was started on amlodipine. PHYSICAL EXAMINATION: GENERAL: The patient is awake, alert, does not appear to be in no acute distress. VITAL SIGNS: Blood pressure 190/88, temperature is 98.4, pulse 61, respiratory rate of 16, oxygen saturation is 100% on room air. HEAD AND NECK: Normocephalic, atraumatic. NECK: Supple. CHEST: Fair bilateral air entry. HEART: S1, S2. Regular. ABDOMEN: Soft, nontender. Bowel sounds present. NEUROLOGIC: Awake, alert, moving extremities. PSYCHIATRIC: Normal mood. GENITOURINARY: No suprapubic tenderness. No flank tenderness. ASSESSMENT: 1. Hypertensive urgency, blood pressure remains elevated. 2. Headache, improved. 3. Diabetes mellitus type 2. 4. History of cerebrovascular accident. PLAN: 1. The patient was started on amlodipine, we will increase the dose to 10 mg daily. 2. Continue with losartan. 3. Hopefully if the patient's blood pressure improves, possible discharge in a.m. if the patient is stable. Job ID: [id number]
[2020-05-19] MEDS: Docusate 100 MG CAP PO SCH (20:10)
[2020-05-20] MEDS: cloNIDine 0.1 MG TAB PO PRN ×2 (05:54→15:58)
[2020-05-20] MEDS ORDERED: metFORMIN 500 MG TAB PO SCH (08:00)
[2020-05-20] MEDS ORDERED: Losartan 25 MG TAB PO SCH (08:47)
[2020-05-20] MEDS ORDERED: Amlodipine 10 MG TAB PO SCH (09:00)
[2020-05-20] MEDS ORDERED: Amlodipine 5 MG TAB PO SCH ×2 (09:00)
[2020-05-20] MEDS: Brimonidine Tartrate 0.2% Ophth Soln 5 ml Bottle L EYE SCH (09:37)
[2020-05-20] MEDS: Aspirin Chewable 81 MG TAB PO SCH (09:37)
[2020-05-20] MEDS: Timolol 0.5% Ophth Soln 5 ml Bottle L EYE SCH (09:38)
[2020-05-20] MEDS: Brinzolamide 1% Ophth SUSP 10 ml Bottle EA EYE SCH ×2 (09:38→15:48)
[2020-05-20] MEDS: Pantoprazole 40 MG VIAL IVP SCH (09:39)
[2020-05-20] MEDS: Docusate 100 MG CAP PO SCH (09:39)
[2020-05-20 16:13] VITALS: BP 171/74; TEMP 98.5
== END 2020-05-20 19:37 | disposition home or self-care (01) | DRG 305 ==
LOC: ERS 15:18 → ERHOLD 18:44 → 2NO 05-17 15:40
PROVIDERS: ADMIT Internal Medicine; ATTEND Internal Medicine
DX: I16.0 Hypertensive urgency (principal); E78.5 Hyperlipidemia, unspecified; K21.9 Gastro-esophageal reflux disease without esophagitis; E11.65 Type 2 diabetes mellitus with hyperglycemia; Z20.822 Contact with and (suspected) exposure to COVID-19; Z88.0 Allergy status to penicillin; Z88.1 Allergy status to other antibiotic agents; Z86.73 Personal history of transient ischemic attack (TIA), and cerebral infarction without residual deficits
CPT/HCPCS: 36415; 36416; 70450; 80048; 80053; 81003; 81015; 84484; 85025; 85610; 85730; 87635; 90471; 90662; 93005; 96365; 96375; C9113; G0008; J0360; J1200; J1815; J2765; U0003; U0005

== ENCOUNTER 2020-08-01 10:22 | Outpatient (CLI) | payer MEDICARE, MEDICAID | END 2020-08-01 10:23 | disposition home or self-care (01) | LOC: BICMAMMO 10:22 | PROVIDERS: ATTEND Family Medicine | DX: Z12.31 Encounter for screening mammogram for malignant neoplasm of breast (principal); Z80.3 Family history of malignant neoplasm of breast | CPT/HCPCS: 77063; 77067 ==

== ENCOUNTER 2021-04-27 12:12 | Inpatient (IN) | payer MEDICARE, MEDICAID ==
[2021-04-27 13:37] LABS: #Eosinphils 0.1 thou/uL (0.0-0.7); #Lymphocytes 2.2 thou/uL (1.20-3.40); #Monocytes 0.8 thou/uL (0.11-0.59); %Basophils 0.4 % (0.0-1.0); %Eosinophils 0.7 % (0.0-10.0); %Lymphocytes 19.8 % (21.0-51.0); %Monocytes 6.9 % (0.0-10.0); %Neutrophils 72.2 % (42.0-75.0); Hemoglobin 12.6 g/dL (12.0-16.0); Mean Corpuscular HGB CONC 34.7 g/dL (32.0-36.0); Mean Corpuscular Hemoglobin 30.5 pg (27.0-31.0); Mean Corpuscular Volume 87.9 fL (78.0-98.0); Mean Platelet Volume 7.7 fL (7.4-10.4); Platelet Count 279 thou/uL (130-400); RBC Distribution Width 11.6 % (11.5-14.5); Red Blood Cell (RBC) Count 4.14 mill/uL (4.20-5.40); White Blood Cell (WBC) Count 11.1 thou/uL (4.8-10.8)
[2021-04-27] MEDS ORDERED: Labetalol HCl 100 MG/20 ML VIAL ONE (13:44)
[2021-04-27 13:59] LABS: ALT (SGPT) 11 U/L (8-55); AST (SGOT) 16 U/L (5-34); Albumin 4.2 g/dL (3.4-4.8); Alkaline Phosphatase 63 U/L (40-110); Anion Gap 13 mmol/L (10-20); BUN (Urea Nitrogen) 18 mg/dL (9.8-20.1); Bilirubin, Total 0.5 mg/dL (0.2-1.2); Calc. Creatinine Clearance 0 mL/min (70-130); Calcium 9.4 mg/dL (7.8-10.44); Carbon Dioxide 27 mmol/L (23-31); Chloride 102 mmol/L (98-107); Globulin 3.7 g/dL (2.4-3.5); Glucose 132 mg/dL (83-110); Potassium 3.6 mmol/L (3.5-5.1); Protein, Total 7.9 g/dL (5.8-8.1); Sodium 138 mmol/L (136-145)
[2021-04-27 14:34] LABS: Bacteria/HPF None Seen HPF (None Seen); Bilirubin Negative (Negative); Blood, Urine Negative (Negative); Clarity Clear (Clear); Glucose, Urine (Dipstick) Normal (Negative); Ketone, Urine 10 mg/dL (Negative); Leukocyte Negative Leu/uL (Negative); Nitrite Negative (Negative); Protein, Urine (Dipstick) 100 mg/dL (Neg-Trace); RBC/HPF 0-3 HPF (0-3); Specific Gravity, Urine 1.017 (1.002-1.036); Squamous Epithelial 0-3 HPF (0-3); Urobilinogen Normal mg/dL (Less than 2); WBC/HPF 0-3 HPF (0-3); pH, Urine 6.5 (5.0-9.0)
[2021-04-27] MEDS ORDERED: hydrALAZINE 20 MG/ML VIAL ONE (16:23)
[2021-04-27] MEDS ORDERED: Acetaminophen 325 MG TAB PO PRN (16:27)
[2021-04-27] MEDS ORDERED: Acetaminophen 650 MG Suppository PR PRN (16:27)
[2021-04-27] MEDS ORDERED: Ondansetron PF 4 MG/2 ML Vial IVP PRN (16:27)
[2021-04-27] MEDS ORDERED: hydrALAZINE 20 MG/ML VIAL SLOW IVP PRN ×2 (16:29→20:48)
[2021-04-27] MEDS ORDERED: Docusate 100 MG CAP PO PRN (16:30)
[2021-04-27] MEDS ORDERED: Amlodipine 5 MG TAB PO SCH ×3 (16:30→21:00)
[2021-04-27] MEDS ORDERED: Insulin Regular 300 UNITS/3 ML VIAL SC PRN ×2 (16:37)
[2021-04-27] MEDS ORDERED: Dextrose 50% Abboject 50 ML SYRINGE SLOW IVP PRN (16:37)
[2021-04-27] MEDS ORDERED: Dextrose 5% in Water 1,000 ML IV PRN (16:37)
[2021-04-27 18:44] VITALS: BMI 22.6
[2021-04-27] MEDS ORDERED: cloNIDine 0.1 MG TAB PO PRN ×2 (20:38→20:48)
[2021-04-27] MEDS: HYDROcodone/Acetaminophen 5/325 mg Tablet PO PRN (21:28)
[2021-04-28 04:54] LABS: #Lymphocytes 2.8 thou/uL (1.20-3.40); #Monocytes 0.9 thou/uL (0.11-0.59); #Neutrophils 7.2 thou/uL (1.40-6.50); %Basophils 0.2 % (0.0-1.0); %Eosinophils 0.3 % (0.0-10.0); %Lymphocytes 25.3 % (21.0-51.0); %Monocytes 8.2 % (0.0-10.0); Hemoglobin 11.7 g/dL (12.0-16.0); Mean Corpuscular HGB CONC 33.6 g/dL (32.0-36.0); Mean Corpuscular Hemoglobin 29.6 pg (27.0-31.0); Mean Corpuscular Volume 88.3 fL (78.0-98.0); Mean Platelet Volume 7.6 fL (7.4-10.4); Platelet Count 276 thou/uL (130-400); RBC Distribution Width 11.6 % (11.5-14.5); Red Blood Cell (RBC) Count 3.95 mill/uL (4.20-5.40); White Blood Cell (WBC) Count 10.9 thou/uL (4.8-10.8)
[2021-04-28 05:15] LABS: Anion Gap 12 mmol/L (10-20); BUN (Urea Nitrogen) 16 mg/dL (9.8-20.1); Calc. Creatinine Clearance 55 mL/min (70-130); Carbon Dioxide 26 mmol/L (23-31); Chloride 102 mmol/L (98-107); Glucose 170 mg/dL (83-110); Potassium 3.1 mmol/L (3.5-5.1); Sodium 137 mmol/L (136-145)
[2021-04-28] MEDS: HYDROcodone/Acetaminophen 5/325 mg Tablet PO PRN ×2 (06:06→12:59)
[2021-04-28] MEDS ORDERED: Potassium Chloride 20 MEQ TAB PO SCH (08:00)
[2021-04-28] MEDS ORDERED: CARBOXYMETHYLCELLULOSE SODIUM EA EYE SCH (09:00)
[2021-04-28] MEDS: Aspirin Chewable 81 MG TAB PO SCH (10:05)
[2021-04-28] MEDS ORDERED: Sodium Chloride 0.9% 10 ML ONE (10:42)
[2021-04-28 12:23] LABS: Anion Gap 13 mmol/L (10-20); BUN (Urea Nitrogen) 13 mg/dL (9.8-20.1); Calc. Creatinine Clearance 53 mL/min (70-130); Calcium 9.3 mg/dL (7.8-10.44); Carbon Dioxide 26 mmol/L (23-31); Chloride 101 mmol/L (98-107); Glucose 244 mg/dL (83-110); Sodium 137 mmol/L (136-145)
[2021-04-28 12:28] LABS: Potassium 3.2 mmol/L (3.5-5.1)
[2021-04-28] MEDS: Amlodipine 10 MG TAB PO SCH (12:46)
[2021-04-28 14:04] LABS: SARS-CoV-2 PCR by NAA Not Detected (NotDetected)
[2021-04-28] MEDS ORDERED: Losartan 25 MG TAB PO SCH (14:30)
[2021-04-28] MEDS ORDERED: Chlorthalidone 25 MG TAB PO SCH (15:30)
[2021-04-28] MEDS: Ondansetron ODT 4 MG TAB PO PRN (17:20)
[2021-04-28] MEDS: Artificial Tear Sol 15 ML BOT EA EYE SCH ×3 (18:24→20:23)
[2021-04-28] MEDS: Brimonidine Tartrate 0.2% Ophth Soln 5 ml Bottle L EYE SCH ×2 (18:25→20:24)
[2021-04-28] MEDS: Timolol 0.5% Ophth Soln 5 ml Bottle L EYE SCH ×2 (18:27→20:25)
[2021-04-28] MEDS: Brinzolamide 1% Ophth SUSP 10 ml Bottle EA EYE SCH ×3 (18:28→20:24)
[2021-04-29 05:03] LABS: #Eosinphils 0.1 thou/uL (0.0-0.7); #Lymphocytes 2.9 thou/uL (1.20-3.40); #Monocytes 0.7 thou/uL (0.11-0.59); #Neutrophils 4.7 thou/uL (1.40-6.50); %Basophils 0.5 % (0.0-1.0); %Eosinophils 1.6 % (0.0-10.0); %Lymphocytes 33.8 % (21.0-51.0); %Monocytes 8.3 % (0.0-10.0); %Neutrophils 55.8 % (42.0-75.0); Hemoglobin 11.8 g/dL (12.0-16.0); Mean Corpuscular HGB CONC 33.7 g/dL (32.0-36.0); Mean Corpuscular Hemoglobin 30.1 pg (27.0-31.0); Mean Corpuscular Volume 89.3 fL (78.0-98.0); Mean Platelet Volume 7.6 fL (7.4-10.4); Platelet Count 276 thou/uL (130-400); RBC Distribution Width 11.6 % (11.5-14.5); White Blood Cell (WBC) Count 8.4 thou/uL (4.8-10.8)
[2021-04-29 05:12] LABS: Anion Gap 13 mmol/L (10-20); BUN (Urea Nitrogen) 16 mg/dL (9.8-20.1); Calc. Creatinine Clearance 53 mL/min (70-130); Calcium 8.8 mg/dL (7.8-10.44); Carbon Dioxide 24 mmol/L (23-31); Chloride 102 mmol/L (98-107); Glucose 136 mg/dL (83-110); Potassium 3.5 mmol/L (3.5-5.1); Sodium 135 mmol/L (136-145)
[2021-04-29] MEDS ORDERED: Losartan 25 MG TAB PO SCH (09:00)
[2021-04-29] MEDS ORDERED: Chlorthalidone 25 MG TAB PO SCH (09:00)
[2021-04-29] MEDS: Aspirin Chewable 81 MG TAB PO SCH (09:05)
[2021-04-29] MEDS: metFORMIN 500 MG TAB PO SCH (09:06)
[2021-04-29] MEDS: Losartan 25 MG TAB PO SCH (09:06)
[2021-04-29] MEDS: Amlodipine 10 MG TAB PO SCH (09:06)
[2021-04-29] MEDS: Artificial Tear Sol 15 ML BOT EA EYE SCH ×3 (09:10→20:57)
[2021-04-29] MEDS: Timolol 0.5% Ophth Soln 5 ml Bottle L EYE SCH ×2 (09:11→20:53)
[2021-04-29] MEDS: Brinzolamide 1% Ophth SUSP 10 ml Bottle EA EYE SCH ×3 (09:11→20:52)
[2021-04-29] MEDS: Brimonidine Tartrate 0.2% Ophth Soln 5 ml Bottle L EYE SCH ×2 (09:11→20:55)
[2021-04-29] MEDS: Ondansetron ODT 4 MG TAB PO PRN (09:23)
[2021-04-29] MEDS: hydrALAZINE 25 MG TAB PO SCH (20:52)
[2021-04-30 05:11] LABS: #Eosinphils 0.2 thou/uL (0.0-0.7); #Lymphocytes 2.8 thou/uL (1.20-3.40); #Monocytes 0.7 thou/uL (0.11-0.59); #Neutrophils 5.3 thou/uL (1.40-6.50); %Basophils 0.5 % (0.0-1.0); %Lymphocytes 31.4 % (21.0-51.0); %Monocytes 7.3 % (0.0-10.0); %Neutrophils 58.8 % (42.0-75.0); Hemoglobin 12.2 g/dL (12.0-16.0); Mean Corpuscular HGB CONC 35.2 g/dL (32.0-36.0); Mean Corpuscular Hemoglobin 31.3 pg (27.0-31.0); Mean Corpuscular Volume 88.9 fL (78.0-98.0); Mean Platelet Volume 7.4 fL (7.4-10.4); Platelet Count 273 thou/uL (130-400); RBC Distribution Width 11.4 % (11.5-14.5); Red Blood Cell (RBC) Count 3.91 mill/uL (4.20-5.40)
[2021-04-30 05:31] LABS: Anion Gap 11 mmol/L (10-20); BUN (Urea Nitrogen) 15 mg/dL (9.8-20.1); Calc. Creatinine Clearance 53 mL/min (70-130); Calcium 8.9 mg/dL (7.8-10.44); Carbon Dioxide 26 mmol/L (23-31); Chloride 101 mmol/L (98-107); Glucose 142 mg/dL (83-110); Potassium 3.5 mmol/L (3.5-5.1); Sodium 134 mmol/L (136-145)
[2021-04-30 07:57] VITALS: BP 145/70
[2021-04-30] MEDS: Losartan 25 MG TAB PO SCH (08:33)
[2021-04-30] MEDS: Amlodipine 10 MG TAB PO SCH (08:34)
[2021-04-30] MEDS: Aspirin Chewable 81 MG TAB PO SCH (08:34)
[2021-04-30] MEDS: hydrALAZINE 25 MG TAB PO SCH (08:34)
[2021-04-30] MEDS: metFORMIN 500 MG TAB PO SCH (08:34)
[2021-04-30] MEDS: Artificial Tear Sol 15 ML BOT EA EYE SCH ×2 (08:38→14:36)
[2021-04-30] MEDS: Brinzolamide 1% Ophth SUSP 10 ml Bottle EA EYE SCH (08:39)
[2021-04-30] MEDS: Timolol 0.5% Ophth Soln 5 ml Bottle L EYE SCH (08:40)
[2021-04-30] MEDS: Brimonidine Tartrate 0.2% Ophth Soln 5 ml Bottle L EYE SCH ×2 (08:41→14:36)
[2021-04-30 11:21] VITALS: TEMP 98.5
== END 2021-04-30 14:45 | disposition home health service (06) | DRG 605 ==
LOC: ERS 12:12 → ERHOLD 16:02 → 2NO 17:59 → OBSVTOIN 04-29 16:20
PROVIDERS: ADMIT Student in an Organized Health Care Education/Training Program; ATTEND Nurse Practitioner Family
DX: S00.03XA Contusion of scalp, initial encounter (principal); Z20.822 Contact with and (suspected) exposure to COVID-19; Z23 Encounter for immunization; I10 Essential (primary) hypertension; W18.30XA Fall on same level, unspecified, initial encounter; E78.5 Hyperlipidemia, unspecified; E11.9 Type 2 diabetes mellitus without complications; I16.0 Hypertensive urgency; E87.6 Hypokalemia; E66.9 Obesity, unspecified; Z98.42 Cataract extraction status, left eye; Z98.41 Cataract extraction status, right eye; Z88.0 Allergy status to penicillin; Z88.1 Allergy status to other antibiotic agents; Z88.8 Allergy status to other drugs, medicaments and biological substances; Z98.51 Tubal ligation status; Z86.73 Personal history of transient ischemic attack (TIA), and cerebral infarction without residual deficits; Z68.22 Body mass index [BMI] 22.0-22.9, adult
CPT/HCPCS: 36415; 36416; 70450; 70486; 71045; 72125; 80048; 80053; 81003; 81015; 83605; 84484; 85025; 93005; 96374; 96375; 96376; G0378; J0360; J1815; Q0162; U0003; U0005

== ENCOUNTER 2021-08-04 09:23 | Outpatient (CLI) | payer MEDICARE, MEDICAID | END 2021-08-04 09:24 | disposition home or self-care (01) | LOC: BICMAMMO 09:23 | PROVIDERS: ATTEND Family Medicine | DX: Z12.31 Encounter for screening mammogram for malignant neoplasm of breast (principal); Z80.3 Family history of malignant neoplasm of breast | CPT/HCPCS: 77063; 77067 ==

== ENCOUNTER 2021-08-22 09:47 | Outpatient (CLI) | payer MEDICARE, MEDICAID | END 2021-08-22 09:48 | disposition home or self-care (01) | LOC: ULT 09:47 | PROVIDERS: ATTEND Family Medicine | DX: R10.13 Epigastric pain (principal); N28.1 Cyst of kidney, acquired | CPT/HCPCS: 76705 ==

== ENCOUNTER 2023-08-30 09:46 | Outpatient (CLI) | payer MEDICARE, MEDICAID | END 2023-08-30 09:47 | disposition home or self-care (01) | LOC: BICMAMMO 09:46 | PROVIDERS: ATTEND Family Medicine | DX: Z12.31 Encounter for screening mammogram for malignant neoplasm of breast (principal); Z80.3 Family history of malignant neoplasm of breast | CPT/HCPCS: 77063; 77067 ==